=== PATIENT | male | born 1935 | race Caucasian/White ===

== ENCOUNTER 2023-12-02 14:44 | Inpatient (IN) ==
[2023-12-02 16:54] VITALS: BMI 27.3
--- NOTE | 2023-12-02 18:11 | EKG ---
Test Reason : AFIB WITH RVR Blood Pressure : */* mmHG Vent. Rate : 108 BPM Atrial Rate : * BPM P-R Int : * ms QRS Dur : 86 ms QT Int : 348 ms P-R-T Axes : * -68 -11 degrees QTc Int : 466 ms Atrial fibrillation with rapid ventricular response Left axis deviation Septal infarct , age undetermined Abnormal ECG No previous ECGs available Confirmed by Brandon Wright MD ([id number]) on 12/03/2023 7:32:40 AM Referred By: Confirmed By: Brandon Wright MD
[2023-12-02 18:36] LABS: BASOPHILS % (AUTO) 0.5 % (0.2-1.0); EOSINOPHILS % (AUTO) 0.5 % (0.9-2.9); HEMATOCRIT 42.9 % (42.0-54.0); HEMOGLOBIN 14.2 g/dL (13.5-18.0); LYMPHOCYTES # (AUTO) 1.1 X10^3/uL (1.3-2.9); MEAN CORPUSCULAR HGB CONC 33.1 g/dL (33.0-35.0); MEAN CORPUSCULAR VOLUME 90.5 fL (80.0-100.0); MEAN PLATELET VOLUME 8.2 fL (7.4-11.0); MONOCYTES % (AUTO) 11.9 % (0.0-13.0); NEUTROPHILS % (AUTO) 74.1 % (42.0-75.0); PLATELET COUNT 198 X10^3/uL (150.0-450.0); RED BLOOD COUNT 4.74 X10^6/uL (4.7-6.0); WHITE BLOOD COUNT 8.1 X10^3/uL (3.6-10.0)
[2023-12-02 18:48] LABS: ALANINE AMINOTRANSFERASE 36 Units/L (12-78); ALBUMIN 3.4 g/dL (3.4-5.0); ALKALINE PHOSPHATASE 58 Units/L (46-116); ASPARTATE AMINO TRANSFERASE 31 Units/L (15-37); BLOOD UREA NITROGEN 24 mg/dL (7-18); CALCIUM 8.8 mg/dL (8.5-10.1); CARBON DIOXIDE 28.2 mmol/L (21-32); CHLORIDE 94 mmol/L (98-107); COR NA(FOR HYPERGLY) 129 mmol/L (136-145); CREATININE 1.32 mg/dL (0.70-1.30); GLUCOSE 111 mg/dL (65-99); POTASSIUM 4.3 mmol/L (3.5-5.1); SODIUM 129 mmol/L (136-145); TOTAL PROTEIN 6.5 g/dL (6.4-8.2); eGFR NON BLACK RACES 55 (>60)
--- NOTE | 2023-12-02 19:06 | EKG ---
Test Reason : SOB Blood Pressure : */* mmHG Vent. Rate : 114 BPM Atrial Rate : * BPM P-R Int : * ms QRS Dur : 96 ms QT Int : 344 ms P-R-T Axes : * -34 -6 degrees QTc Int : 474 ms Atrial fibrillation with rapid ventricular response with premature ventricular or aberrantly conducte d complexes Left axis deviation Low voltage QRS Cannot rule out Anterior infarct (cited on or before 02-DEC-2023) Abnormal ECG When compared with ECG of 02-DEC-2023 17:50, (Unconfirmed) Questionable change in initial forces of Anterior leads Nonspecific T wave abnormality no longer evident in Anterior leads Confirmed by Brandon Wright MD ([id number]) on 12/03/2023 7:32:32 AM Referred By: Confirmed By: Brandon Wright MD
[2023-12-02] MEDS: ASPIRIN EC 81 MG PO SCH (19:12)
[2023-12-02] MEDS: NS 1,000 ML IV 1,000 ML IV SCH (19:12)
[2023-12-02] MEDS: TOPROL XL PO SCH (19:12)
[2023-12-02] MEDS: PLAVIX PO SCH (19:12)
--- NOTE | 2023-12-02 20:26 | RAD ---
EXAM:CHEST, 1 VIEWHISTORY:AFIB WITH RVR; UnavailableCOMPARISON:None.FINDINGS:The trachea is midline. The cardiac silhouette is enlarged. The lungs demonstrate bilateral effusions [id number]-ryuvnel-[id number]-right with some mild pulmonary vascular congestion which may be due to early changes of CHF. The bony thorax is unremarkable.IMPRESSION:Cardiomegaly with bilateral layering effusions [id number]-right and mild pulmonary vascular congestion suggesting early changes of CHF.THIS IS AN ELECTRONICALLY VERIFIED FINAL REPORT12/02/2023 8:22 PM - Electronically signed by Rigoberto Tyson MD
[2023-12-02 20:30] LABS: APPEARANCE,URINE CLEAR (CLEAR); BILIRUBIN,URINE NEGATIVE (NEGATIVE); BLOOD/HEMOGLOBIN,URINE 1+ (NEGATIVE); COLOR,URINE DARK YELLOW (YELLOW); GLUCOSE, URINE NEGATIVE (NEGATIVE); KETONES,URINE 1+ (NEGATIVE); LEUKOCYTE ESTERASE ,URINE NEGATIVE (NEGATIVE); NITRITES,URINE NEGATIVE (NEGATIVE); PROTEIN,URINE 2+ (NEGATIVE); UROBILINOGEN,URINE NORMAL (NORMAL)
[2023-12-02 20:42] LABS: BACTERIA,URINE TRACE /HPF (NEGATIVE); HYALINE CASTS, URINE FEW /LPF (NEGATIVE); RBC,URINE 0-2 /HPF (0-3); SQUAMOUS EPITHELIAL CELL,UR FEW /HPF (NEGATIVE); YEAST,URINE FEW /HPF (NEGATIVE)
[2023-12-02] MEDS: ZOCOR TAB 20 MG PO SCH (21:15)
--- NOTE | 2023-12-02 22:53 | EKG ---
Test Reason : SOB Blood Pressure : */* mmHG Vent. Rate : 98 BPM Atrial Rate : * BPM P-R Int : * ms QRS Dur : 98 ms QT Int : 382 ms P-R-T Axes : * 1 1 degrees QTc Int : 487 ms Atrial fibrillation Low voltage QRS Cannot rule out Anterior infarct (cited on or before 02-DEC-2023) Abnormal ECG When compared with ECG of 02-DEC-2023 18:49, (Unconfirmed) QRS axis shifted right Confirmed by Brandon Wright MD ([id number]) on 12/03/2023 7:31:34 AM Referred By: Confirmed By: Brandon Wright MD
--- NOTE | 2023-12-03 03:06 | EKG ---
Test Reason : SOB Blood Pressure : */* mmHG Vent. Rate : 109 BPM Atrial Rate : * BPM P-R Int : * ms QRS Dur : 94 ms QT Int : 360 ms P-R-T Axes : * 4 -18 degrees QTc Int : 484 ms Atrial fibrillation with rapid ventricular response Low voltage QRS Septal infarct (cited on or before 02-DEC-2023) Abnormal ECG When compared with ECG of 02-DEC-2023 22:38, (Unconfirmed) No significant change was found Confirmed by Brandon Wright MD ([id number]) on 12/03/2023 7:31:23 AM Referred By: Confirmed By: Brandon Wright MD
[2023-12-03 03:20] LABS: BASOPHILS % (AUTO) 0.4 % (0.2-1.0); EOSINOPHILS # (AUTO) 0.1 x10^3/uL (0.0-0.2); HEMATOCRIT 40.6 % (42.0-54.0); HEMOGLOBIN 13.4 g/dL (13.5-18.0); LYMPHOCYTES # (AUTO) 0.9 X10^3/uL (1.3-2.9); LYMPHOCYTES % (AUTO) 12.1 % (21.0-51.0); MEAN CORPUSCULAR HEMOGLOBIN 29.8 pg (27.0-34.0); MEAN CORPUSCULAR HGB CONC 33.2 g/dL (33.0-35.0); MEAN CORPUSCULAR VOLUME 89.7 fL (80.0-100.0); MEAN PLATELET VOLUME 8.1 fL (7.4-11.0); MONOCYTES % (AUTO) 13.7 % (0.0-13.0); NEUTROPHILS # (AUTO) 5.4 x10^3/uL (2.2-4.8); NEUTROPHILS % (AUTO) 72.8 % (42.0-75.0); PLATELET COUNT 190 X10^3/uL (150.0-450.0); RED BLOOD COUNT 4.52 X10^6/uL (4.7-6.0); RED CELL DISTRIBUTION WIDTH 13.9 % (11.6-16.5); WHITE BLOOD COUNT 7.4 X10^3/uL (3.6-10.0)
[2023-12-03 03:34] LABS: ALANINE AMINOTRANSFERASE 31 Units/L (12-78); ALKALINE PHOSPHATASE 50 Units/L (46-116); ASPARTATE AMINO TRANSFERASE 27 Units/L (15-37); BLOOD UREA NITROGEN 23 mg/dL (7-18); CALCIUM 8.3 mg/dL (8.5-10.1); CARBON DIOXIDE 25.4 mmol/L (21-32); CHLORIDE 95 mmol/L (98-107); COR CA(FOR HYPOALB) 9.1 mg/dL (8.5-10.1); COR NA(FOR HYPERGLY) 129 mmol/L (136-145); CREATINE KINASE 67 Units/L (39-308); CREATININE 1.22 mg/dL (0.70-1.30); GLUCOSE 114 mg/dL (65-99); SODIUM 129 mmol/L (136-145); TOTAL PROTEIN 5.7 g/dL (6.4-8.2); eGFR NON BLACK RACES 60 (>60)
[2023-12-03] MEDS: LOVENOX INJ 40 MG SYR SC SCH (08:28)
--- NOTE | 2023-12-03 10:27 | DR.UPDATE ---
H&P Update Prescription drug monitoring program results: PDMP reviewed and no concerns identified H&P Reviewed: Yes Any changes to H&P?: Yes Changes noted:: WAS A DIRECT ADMISSION TO THE HOSPITAL FOR EVALUATION AND TREATMENT OF NEW ONSET ATRIAL FIBRILLATION. HIS SYMPTOMS OF SHORTNESS OF BREATH AND ELEVATED HEART RATE STARTED ABOUT A MONTH AGO AND HAVE PROGRESSIVELY GOTTEN WORSE. HIS MEDICAL HX INCLUDES HYPERLIPIDEMIA, HTN, CAD, PROSTATE CANCER. HE IS CURRENTLY RECEIVING TREATMENT BY . IN THE OFFICE, EKG REVEALED ATRIAL FIBRILLATION WITH RVR. ON ARRIVAL TO THE HOSPITAL, HIS VITALS WERE: 97.8-128-49-94%-144/102. LABS WERE OBTAINED. WBC 8.1, RBC 4.74, HGB 14.2, HCT 42.9, PLT COUNT 198, SODIUM 129, POTASSIUM 4.3, CHLORIDE 94, CARBON DIOXIDE 28.2, BUN 24, CREATININE 1.32, GLUCOSE 111, CALCIUM 8.8, MAGNESIUM 2.1, TOTAL BILI 1.00, AST 31, ALT 36, ALK PHOS 58, CREATINE KINASE 117, TROPONIN 21.0, BNP 682, TOTAL PROTEIN 6.5, ALBUMIN 3.4. A URINALSYIS WAS OBTAINED AND WAS UNREMARKABLE. A CHEST XRAY WAS OBTAINED AND REVEALED: CARDIOMEGALY WITH BI LATERAL LAYERING EFFUSIONS [id number] AND MILD PULMONARY VASCULAR CONGESTION SUGGESTING EARLY CHANGES OF CHF. EKG WAS OBTAINED AND REVEALED ATRIAL FIBRILLATION WITH RAPID VENTRICULAR RESPONSE. HR 108 BPM. ON ADMISSION, HE WAS STARTED ON NORMAL SALINE AT 50 ML/HR, ECOTRIN 81MG DAILY, PLAVIX 75MG DAILY, LOVENOX 40MG SC DAILY, METOPROLOL SUCCINATE 100MG DAILY, ELIQUIS 2.5MG BID, ALBUMIN 25% IV DAILY, AND ZOCOR 20MG HS. WE WILL ADMINISTER LASIX 20MG IV X 1 DOSE. WE WILL OBTAIN AN ECHOCARDIOGRAM. OTHERWISE, WE WILL FOLLOW-UP WITH AM LABS AND CHEST XRAY AND CONTINUE TO MONITOR. TIME SPENT ON CLINICAL ASSESSMENT, REVIEWING LABS AND IMAGING, DECISION MAKING, AND DOCUMENTATION GREATER THAN 75 MINUTES. REPEAT SERIAL CARDIAC ENZYMES WERE WITHIN NORMAL LIMITS AND EKGS CONTINUED TO SHOW ATRIAL FIBRILLATION WITH RVR. Patient was examined?: Yes Vital Signs: Temp Pulse Resp BP Pulse Ox O2 Del Method 12/03/23 09:17 Room Air 12/03/23 09:00 147/72 12/03/23 09:00 106 H 32 H 97 12/03/23 08:45 103 H 36 H 98 12/03/23 08:30 99 H 28 H 97 12/03/23 08:15 107 H 36 H 96 12/03/23 08:13 140/88 12/03/23 08:13 109 H 43 H 96 12/03/23 08:43 Room Air 12/03/23 08:00 167/125 12/03/23 08:00 97.8 F 114 H 39 H 93 L 12/03/23 07:45 112 H 34 H 96 12/03/23 07:30 105 H 31 H 98 12/03/23 07:15 106 H 46 H 97 12/03/23 07:01 118 H 48 H 96 12/03/23 07:01 162/89 12/03/23 07:00 133 H 38 H 95 12/03/23 06:45 97 H 11 L 97 12/03/23 06:30 99 H 30 H 97 12/03/23 06:15 100 H 36 H 98 12/03/23 06:00 147/80 12/03/23 06:00 101 H 38 H 97 12/03/23 05:45 110 H 38 H 96 12/03/23 05:30 134 H 62 H 95 12/03/23 05:15 117 H 34 H 96 12/03/23 05:00 127/78 12/03/23 05:00 101 H 18 96 12/03/23 04:45 98 H 16 96 12/03/23 04:30 108 H 21 95 12/03/23 04:15 108 H 33 H 96 12/03/23 04:01 146/80 12/03/23 04:01 103 H 19 97 12/03/23 04:00 102 H 20 97 12/03/23 03:45 94 H 15 98 12/03/23 03:30 96 H 13 97 12/03/23 03:15 96 H 25 H 97 12/03/23 03:00 99 H 27 H 97 12/03/23 03:00 126/83 12/03/23 02:45 98 H 22 97 12/03/23 02:30 102 H 22 97 12/03/23 02:15 104 H 16 96 12/03/23 02:01 156/93 12/03/23 02:01 107 H 22 95 12/03/23 02:00 101 H 20 96 12/03/23 01:45 88 11 L 96 12/03/23 01:30 88 10 L 95 12/03/23 01:15 89 11 L 96 12/03/23 01:00 122/72 12/03/23 01:00 93 H 11 L 97 12/03/23 00:45 90 11 L 98 12/03/23 00:30 96 H 13 97 12/03/23 00:15 94 H 12 98 12/03/23 00:00 124/74 12/03/23 00:00 98 H 21 96 12/02/23 23:45 98 H 20 97 12/02/23 23:30 101 H 15 97 12/02/23 23:15 95 H 20 97 12/02/23 23:00 105 H 31 H 97 12/02/23 23:00 133/81 12/02/23 22:45 101 H 19 97 12/02/23 22:30 104 H 28 H 96 12/02/23 22:15 102 H 22 97 12/02/23 22:00 96 H 12 98 12/02/23 22:00 120/86 12/03/23 06:00 99 H 26 H 147/80 96 Room Air 12/03/23 05:00 98 H 18 127/78 96 Room Air 12/03/23 04:00 97.9 F 97 H 26 H 141/80 96 Room Air 12/03/23 03:00 97 H 31 H 126/83 98 Room Air 12/03/23 02:00 101 H 27 H 153/91 96 Room Air 12/03/23 01:00 86 16 122/72 97 Room Air 12/03/23 00:00 97.9 F 97 H 20 124/74 96 Room Air 12/02/23 23:00 97 H 19 133/81 98 Room Air 12/02/23 19:00 Room Air 12/02/23 22:00 93 H 16 120/86 97 Room Air 12/02/23 21:00 105 H 29 H 132/71 97 Room Air 12/02/23 20:00 97.9 F 120 H 28 H 164/72 97 Room Air 12/02/23 19:00 126 H 33 H 159/87 97 Room Air 12/02/23 16:00 Room Air 12/02/23 18:07 108 H 49 H 94 L 12/02/23 18:07 123/91 12/02/23 18:00 110 H 42 H 98 12/02/23 17:45 111 H 44 H 96 12/02/23 17:35 97.7 F 76 21 143/59 100 12/02/23 17:30 116 H 37 H 90 L 12/02/23 17:15 111 H 53 H 97 12/02/23 17:02 148/93 12/02/23 17:02 105 H 65 H 97 12/02/23 17:00 111 H 54 H 98 12/02/23 17:00 148/102 12/02/23 16:45 115 H 41 H 98 12/02/23 16:30 110 H 48 H 99 12/02/23 16:15 116 H 53 H 99 12/02/23 16:15 161/81 12/02/23 16:13 118 H 60 H 94 L 12/02/23 16:13 144/102 12/02/23 16:10 97.8 F 128 H 49 H
[2023-12-03] MEDS: TOPROL XL PO ONE (10:28)
[2023-12-03] MEDS: LASIX IVP ONE (10:42)
[2023-12-03] MEDS: ALBUMIN HUMAN 25%- 100 ML 100 ML IV SCH (10:42)
--- NOTE | 2023-12-03 11:04 | RAD ---
EXAM: CHEST, 1 VIEW HISTORY: SOB; COMPARISON: Prior study or studies were utilized for comparison during interpretation with the most relevant vandana ed 12/02/2023 TECHNIQUE: CHEST, 1 VIEW FINDINGS: Chest: Lines and tubes: Cardiac leads overlie the chest. Mediastinum: Cardiomegaly. Pulmonary vessels: No pulmonary vascular congestion. Lung francis: No suspicious airspace opacity. Pleura: Bilateral pleural effusions, with interval reduction of the right Bones and soft tissues: No acute osseous or soft tissue abnormality. IMPRESSION: 1. Bilateral pleural effusions THIS IS AN ELECTRONICALLY VERIFIED FINAL REPORT 12/03/2023 11:01 AM - Electronically signed by Ziyad Figueroa MD
--- NOTE | 2023-12-03 14:09 | DR.CONSULT ---
CONSULT Consultation for Day of: Date: 12/03/23 Chief Complaint Chief Complaint: sob/edema/new AF Allergies Allergies Allergy/AdvReac Type Severity Reaction Status Date / Time No Known Allergies Allergy Verified 12/02/23 18:03 History of Present Illness History of Present Illness: stent 10 years ago- last stress 5 years ago- c/o hennessy/edema last month- found to be in rafib Past Surgical History Surgical History: Angioplasty/Stents Family History Family Medical History: Cancer Social History Does patient currently use any type of tobacco product: No Have you used tobacco products in the last 12 months: No Type of Tobacco Use: None Alcohol Use: Occasionally Drug Use: None Medications Home Medications: No Known Allergies Allergy (Verified 12/02/23 18:03) CONTINUE taking the following medications aspirin 81 mg tablet,delayed release 81 mg PO DAILY 12/02/23 [History] clopidogrel 75 mg tablet 75 mg PO QDAY 12/02/23 [History] metoprolol succinate 50 mg tablet,extended release 24 hr 50 mg PO QDAY 12/02/23 [History] nitrofurantoin monohydrate/macrocrystals 100 mg capsule 1 cap PO BID 12/02/23 [History] simvastatin 20 mg tablet 20 mg PO QPM 12/02/23 [History] Physical Exam Vital Signs: Vital Signs Temperature 97.8 F Temperature 97.8 F Pulse Rate 146 Pulse Rate 129 Pulse Rate 128 Pulse Rate 123 Pulse Rate 131 Pulse Rate 130 Pulse Rate 126 Pulse Rate 124 Pulse Rate 133 Pulse Rate 132 Pulse Rate 122 Pulse Rate 134 Pulse Rate 139 Pulse Rate 131 Pulse Rate 123 Pulse Rate 115 Pulse Rate 103 Pulse Rate 104 Pulse Rate 111 Pulse Rate 126 Pulse Rate 106 Pulse Rate 101 Pulse Rate 106 Pulse Rate 103 Pulse Rate 99 Pulse Rate 107 Pulse Rate 109 Pulse Rate 114 Pulse Rate 112 Pulse Rate 105 Pulse Rate 106 Pulse Rate 118 Pulse Rate 133 Pulse Rate 97 Pulse Rate 99 Pulse Rate 100 Respiratory Rate 49 Respiratory Rate 89 Respiratory Rate 72 Respiratory Rate 47 Respiratory Rate 54 Respiratory Rate 50 Respiratory Rate 85 Respiratory Rate 43 Respiratory Rate 41 Respiratory Rate 48 Respiratory Rate 39 Respiratory Rate 65 Respiratory Rate 41 Respiratory Rate 52 Respiratory Rate 45 Respiratory Rate 35 Respiratory Rate 26 Respiratory Rate 21 Respiratory Rate 29 Respiratory Rate 54 Respiratory Rate 43 Respiratory Rate 29 Respiratory Rate 32 Respiratory Rate 36 Respiratory Rate 28 Respiratory Rate 36 Respiratory Rate 43 Respiratory Rate 39 Respiratory Rate 34 Respiratory Rate 31 Respiratory Rate 46 Respiratory Rate 48 Respiratory Rate 38 Respiratory Rate 11 Respiratory Rate 30 Respiratory Rate 36 Blood Pressure 144/88 Blood Pressure 144/78 Blood Pressure 170/96 Blood Pressure 171/100 Blood Pressure 156/98 Blood Pressure 158/101 Blood Pressure 165/101 Blood Pressure 159/107 Blood Pressure 175/111 Blood Pressure 139/76 Blood Pressure 147/72 Blood Pressure 140/88 Blood Pressure 167/125 Blood Pressure 162/89 O2 Sat by Pulse Oximetry 92 O2 Sat by Pulse Oximetry 95 O2 Sat by Pulse Oximetry 93 O2 Sat by Pulse Oximetry 93 O2 Sat by Pulse Oximetry 94 O2 Sat by Pulse Oximetry 74 O2 Sat by Pulse Oximetry 93 O2 Sat by Pulse Oximetry 95 O2 Sat by Pulse Oximetry 95 O2 Sat by Pulse Oximetry 95 O2 Sat by Pulse Oximetry 94 O2 Sat by Pulse Oximetry 93 O2 Sat by Pulse Oximetry 94 O2 Sat by Pulse Oximetry 95 O2 Sat by Pulse Oximetry 95 O2 Sat by Pulse Oximetry 96 O2 Sat by Pulse Oximetry 96 O2 Sat by Pulse Oximetry 97 O2 Sat by Pulse Oximetry 97 O2 Sat by Pulse Oximetry 95 O2 Sat by Pulse Oximetry 98 O2 Sat by Pulse Oximetry 98 O2 Sat by Pulse Oximetry 97 O2 Sat by Pulse Oximetry 98 O2 Sat by Pulse Oximetry 97 O2 Sat by Pulse Oximetry 96 O2 Sat by Pulse Oximetry 96 O2 Sat by Pulse Oximetry 93 O2 Sat by Pulse Oximetry 96 O2 Sat by Pulse Oximetry 98 O2 Sat by Pulse Oximetry 97 O2 Sat by Pulse Oximetry 96 O2 Sat by Pulse Oximetry 95 O2 Sat by Pulse Oximetry 97 trop negative x 2O2 Sat by Pulse Oximetry 97 O2 Sat by Pulse Oximetry 98 alert ox3 diallo irreg irreg anastasiia 2 plus B edema- lungs minimal fluid labs" hct 40- k4.0 na 129 bun/cr 23/1.2 alb 3.0 trop negative x 2 bnp 715 Plan (1) CAD (coronary artery disease): Status: Acute Narrative Support Text: cont plavix/bb/statin- no asa since adding doac (2) Atrial fibrillation: Status: Acute Narrative Support Text: start doac- increase bb for better rate control- also add CCB drip- will consider carrington/cv friday if no convert- check echo (3) Edema: Status: Acute Narrative Support Text: albumin/lasix- rate control
[2023-12-03] MEDS: ELIQUIS PO SCH (14:32)
[2023-12-03] MEDS: CARDIZEM INJ 125 MG VIAL 125 MG in NS 100 ML IV 100 ML IV PRN (14:46)
[2023-12-03] MEDS: CONSULT PHARMACY - POTASSIUM & MAGNESIUM XX SCH (19:04)
[2023-12-03] MEDS: CRESTOR TAB 10 MG PO SCH (21:24)
[2023-12-04 05:24] LABS: BASOPHILS % (AUTO) 0.5 % (0.2-1.0); EOSINOPHILS # (AUTO) 0.1 x10^3/uL (0.0-0.2); EOSINOPHILS % (AUTO) 1.2 % (0.9-2.9); HEMOGLOBIN 12.7 g/dL (13.5-18.0); LYMPHOCYTES # (AUTO) 0.8 X10^3/uL (1.3-2.9); LYMPHOCYTES % (AUTO) 11.7 % (21.0-51.0); MEAN CORPUSCULAR HGB CONC 33.3 g/dL (33.0-35.0); MEAN CORPUSCULAR VOLUME 90.2 fL (80.0-100.0); MONOCYTES % (AUTO) 15.5 % (0.0-13.0); NEUTROPHILS # (AUTO) 4.6 x10^3/uL (2.2-4.8); NEUTROPHILS % (AUTO) 71.1 % (42.0-75.0); PLATELET COUNT 188 X10^3/uL (150.0-450.0); RED BLOOD COUNT 4.22 X10^6/uL (4.7-6.0); RED CELL DISTRIBUTION WIDTH 13.8 % (11.6-16.5); WHITE BLOOD COUNT 6.4 X10^3/uL (3.6-10.0)
[2023-12-04 05:38] LABS: ALANINE AMINOTRANSFERASE 80 Units/L (12-78); ALBUMIN 3.3 g/dL (3.4-5.0); ALKALINE PHOSPHATASE 51 Units/L (46-116); ASPARTATE AMINO TRANSFERASE 84 Units/L (15-37); BLOOD UREA NITROGEN 22 mg/dL (7-18); CALCIUM 8.3 mg/dL (8.5-10.1); CARBON DIOXIDE 23.9 mmol/L (21-32); CHLORIDE 97 mmol/L (98-107); COR CA(FOR HYPOALB) 8.9 mg/dL (8.5-10.1); CREATININE 1.23 mg/dL (0.70-1.30); GLUCOSE 102 mg/dL (65-99); POTASSIUM 3.9 mmol/L (3.5-5.1); SODIUM 133 mmol/L (136-145); TOTAL PROTEIN 5.8 g/dL (6.4-8.2); eGFR NON BLACK RACES 59 (>60)
[2023-12-04] MEDS: TOPROL XL PO SCH (08:54)
[2023-12-04] MEDS: CARDIZEM TAB 30 MG PLAIN PO SCH (13:54)
--- NOTE | 2023-12-04 14:23 | NOTE.SOAP ---
Soap Note Note for Day of Date of Exam: 12/04/23 Subjective Data Subjective Data: still in afib- feels better w rate control, edema down Objective Data Objective Data: bp 140/70 p79 lungs clear edema down irreg irreg echo: ef 45% big [place] labs: hct 38, na 133, k 3.9 cr 1.23 Assessment Assessment: cad/af/htn Plan Plan: change to po cardizem- iv amio load ( big [place]!- give best shot to maintain nsr- carrington/cv in am
[2023-12-04] MEDS: NEXTERONE IV 150 MG PREMIX* 150 MG/100 ML BAG IV ONE (16:00)
[2023-12-04] MEDS: NEXTERONE IV 360 MG PREMIX* 360 MG/200 ML BAG IV PRN ×2 (16:20→22:50)
[2023-12-04] MEDS: ELIQUIS PO SCH (17:25)
[2023-12-04] MEDS: COLACE CAP 100 MG PO PRN (21:03)
[2023-12-04] MEDS: VALIUM PO PRN (21:56)
[2023-12-05 05:41] LABS: BASOPHILS % (AUTO) 0.4 % (0.2-1.0); EOSINOPHILS % (AUTO) 0.5 % (0.9-2.9); HEMATOCRIT 39.4 % (42.0-54.0); HEMOGLOBIN 12.9 g/dL (13.5-18.0); LYMPHOCYTES # (AUTO) 1.3 X10^3/uL (1.3-2.9); LYMPHOCYTES % (AUTO) 16.8 % (21.0-51.0); MEAN CORPUSCULAR HEMOGLOBIN 29.6 pg (27.0-34.0); MEAN CORPUSCULAR HGB CONC 32.7 g/dL (33.0-35.0); MEAN CORPUSCULAR VOLUME 90.8 fL (80.0-100.0); MONOCYTES # (AUTO) 1.2 x10^3/uL (0.3-0.8); MONOCYTES % (AUTO) 15.3 % (0.0-13.0); NEUTROPHILS # (AUTO) 5.1 x10^3/uL (2.2-4.8); PLATELET COUNT 191 X10^3/uL (150.0-450.0); RED BLOOD COUNT 4.34 X10^6/uL (4.7-6.0); RED CELL DISTRIBUTION WIDTH 14.3 % (11.6-16.5); WHITE BLOOD COUNT 7.6 X10^3/uL (3.6-10.0)
[2023-12-05 05:51] LABS: ALANINE AMINOTRANSFERASE 133 Units/L (12-78); ALBUMIN 3.5 g/dL (3.4-5.0); ALKALINE PHOSPHATASE 48 Units/L (46-116); ASPARTATE AMINO TRANSFERASE 156 Units/L (15-37); BLOOD UREA NITROGEN 29 mg/dL (7-18); CALCIUM 8.2 mg/dL (8.5-10.1); CARBON DIOXIDE 23.5 mmol/L (21-32); CHLORIDE 98 mmol/L (98-107); COR NA(FOR HYPERGLY) 134 mmol/L (136-145); CREATININE 1.51 mg/dL (0.70-1.30); GLUCOSE 136 mg/dL (65-99); POTASSIUM 4.3 mmol/L (3.5-5.1); SODIUM 133 mmol/L (136-145); eGFR NON BLACK RACES 47 (>60)
[2023-12-05] MEDS: NS 1,000 ML IV 1,000 ML ONE (08:07)
[2023-12-05] MEDS: DIPRIVAN VIAL 20 ML ONE (08:14)
--- NOTE | 2023-12-05 09:21 | CARDIOVERT ---
Cardioversion Note Date of Procedure: Date: 12/05/23 Note Cardioversion note: precardioversion dx: afib post cardioversion dx: NSR anesethesia: per anesthesia procedure: consent obtained from - pt sedated but did respond to questions before procedure. Standard SIRISHA was preformed w/o difficulty revealing no contraindication to CV thus 300J of synchronous electricity was applied converting to NSR- pt was still sedated post procedure but going back to ICU and will keep a close eye on him- no obvious complications final impression: successful CV to nsr plan: cont doac. amio 200 bid for month then 200 qd.
--- NOTE | 2023-12-05 12:09 | PCM.PROG ---
Progress Note - Progress Note for Day of Date of Exam: 12/04/23 - Subjective Subjective: IS CURRENTLY INPATIENT STATUS FOR TREATMENT OF ATRIAL FIBRILLATION WITH RVR AND CHF. HIS MEDICAL HX INCLUDES HYPERLIPIDEMIA, HTN, CAD, PROSTATE CANCER. HE ALSO REPORTS HAVING A CARDIAC STENT ABOUT 10 YEARS AGO. HE REPORTS THAT HIS LAST STRESS TEST WAS ABOUT 5 YEARS AGO. TODAY, HE IS ALERT AND ORIENTED, SITTING UP IN BED ON MORNING ROUNDS. HE CONTINUES TO REPORT SHORTNESS OF BREATH AND SOME LOWER EXTREMITY SWELLING, BUT DOES ADMIT TO SOME IMPROVEMENT IN SYMPTOMS SINCE ADMISSION. ON EXAMINATION, HEART RATE IS IN THE 70s-80s, BUT HE CONTINUES TO BE IN ATRIAL FIBRILLATION. BILATERAL LUNGS ARE NOTED WITH DIMINISHED LUNG SOUNDS THROUGHOUT. ABDOMEN IS ROUND, SOFT, AND NON-TENDER WITH NORMAL BOWEL SOUNDS NOTED IN ALL QUADRANTS. GOOD RANGE OF MOTION NOTED TO UPPER AND LOWER EXTREMITIES. 1+ EDEMA NOTED TO BLE. HIS VITALS THIS MORNING ARE: 98.0-83-24-94%-132/66. LABS WERE OBTAINED. WBC 6.4, RBC 4.22, HGB 12.7, HCT 38.0, PLT COUNT 188, SODIUM 133, POTASSIUM CHLORIDE 3.9, CHLORIDE 97, BUN 22, CREATININE 1.23, GLUCOSE 102, CALCIUM 8.3, TOTAL BILI 1.20, AST 84, ALT 80, TOTAL PROTEIN 5.8, ALBUMIN 3.3. HE IS CURRENTLY RECEIVING NORMAL SALINE AT 50 ML/HR, ECOTRIN 81MG DAILY, PLAVIX 75MG DAILY, LOVENOX 40MG SC DAILY, METOPROLOL SUCCINATE 100MG DAILY, AMIODARONE 200MG BID, ELIQUIS 2.5MG BID, ALBUMIN 25% IV DAILY, AND ZOCOR 20MG HS. HE IS ALSO ON A CARDIZEM DRIP, WHICH WAS STARTED BY . PLANS FOR A SIRISHA AND POSSIBLE CARDIOVERSION IN THE MORNING IF HE HAS NOT COVERTED TO NSR. WE WILL CONTINUE WITH CURRENT PLAN OF CARE TODAY. OTHERWISE, WE WILL FOLLOW-UP WITH AM LABS AND CONTINUE TO MONITOR. TIME SPENT ON CLINICAL ASSESSMENT, REVIEWING LABS AND IMAGING, DECISION MAKING, AND DOCUMENTATION GREATER THAN 45 MINUTES. - Past Medical Family Social History Past Med/Fam/Surg Hx: No changes since H&P Allergies: Allergies No Known Allergies Allergy (Verified 12/02/23 18:03) - Review of Systems ROS: No change since H&P - Vital Signs and I&O's Vital Signs: Vital Signs Pulse Rate 69 Pulse Rate 71 Pulse Rate 75 Pulse Rate 74 Pulse Rate 73 Pulse Rate 74 Respiratory Rate 9 Respiratory Rate 10 Respiratory Rate 21 Respiratory Rate 10 Respiratory Rate 14 Respiratory Rate 12 Blood Pressure 127/73 Blood Pressure 136/83 Blood Pressure 135/83 Blood Pressure 141/84 Blood Pressure 130/78 Blood Pressure 131/92 O2 Sat by Pulse Oximetry 95 O2 Sat by Pulse Oximetry 95 O2 Sat by Pulse Oximetry 97 O2 Sat by Pulse Oximetry 95 O2 Sat by Pulse Oximetry 95 O2 Sat by Pulse Oximetry 96 Intake and Output: Intake & Output 12/03/23 12/04/23 12/05/23 12/06/23 11:59 11:59 11:59 11:59 Intake Total 895 / 895 2557 / 2557 3070 / 3070 Output Total 325 / 325 200 / 200 Balance 570 / 570 2357 / 2357 3070 / 3070 - Physical Exam Oriented: Normal Eyes: Normal Ear: Normal Nose: Normal Respiratory: Normal Cardiovascular: Irregular, Edema (BLE 1+ PITTING EDEMA ) : Normal Auscultation: Bowel Sounds: Normal Palpation: Normal Tenderness: Normal Skin: Normal Musculoskeletal: Normal Psychiatric: Normal Mood Description: Calm Affect: Normal Speech Pattern: Appropriate - Laboratory and Diagnostics Result Diagrams: 12/05/23 04:51 12/05/23 04:51 Labs: Laboratory WBC 7.6 X10^3/uL (3.6-10.0) 12/05/23 04:51 RBC 4.34 X10^6/uL (4.7-6.0) L 12/05/23 04:51 Hgb 12.9 g/dL (13.5-18.0) L 12/05/23 04:51 Hct 39.4 % (42.0-54.0) L 12/05/23 04:51 MCV 90.8 fL (80.0-100.0) 12/05/23 04:51 MCH 29.6 pg (27.0-34.0) 12/05/23 04:51 MCHC 32.7 g/dL (33.0-35.0) L 12/05/23 04:51 RDW 14.3 % (11.6-16.5) 12/05/23 04:51 Plt Count 191 X10^3/uL (150.0-450.0) 12/05/23 04:51 MPV 8.0 fL (7.4-11.0) 12/05/23 04:51 Neut % (Auto) 67.0 % (42.0-75.0) 12/05/23 04:51 Lymph % (Auto) 16.8 % (21.0-51.0) L 12/05/23 04:51 [place] % (Auto) 15.3 % (0.0-13.0) H 12/05/23 04:51 Eos % (Auto) 0.5 % (0.9-2.9) L 12/05/23 04:51 Baso % (Auto) 0.4 % (0.2-1.0) 12/05/23 04:51 Neut # (Auto) 5.1 x10^3/uL (2.2-4.8) H 12/05/23 04:51 Lymph # (Auto) 1.3 X10^3/uL (1.3-2.9) 12/05/23 04:51 [place]ran # (Auto) 1.2 x10^3/uL (0.3-0.8) H 12/05/23 04:51 Eos # (Auto) 0.0 x10^3/uL (0.0-0.2) 12/05/23 04:51 Baso # (Auto) 0.0 X10^3/uL (0.0-0.1) 12/05/23 04:51 Absolute Nucleated RBC 0.3 /100WBC 12/05/23 04:51 Sodium 133 mmol/L (136-145) L 12/05/23 04:51 Corrected Sodium 134 mmol/L (136-145) L 12/05/23 04:51 Potassium 4.3 mmol/L (3.5-5.1) 12/05/23 04:51 Chloride 98 mmol/L (98-107) 12/05/23 04:51 Carbon Dioxide 23.5 mmol/L (21-32) 12/05/23 04:51 BUN 29 mg/dL (7-18) H 12/05/23 04:51 Creatinine 1.51 mg/dL (0.70-1.30) H 12/05/23 04:51 Est GFR (MDRD) Af Amer 56 (>60) L 12/05/23 04:51 Est GFR (MDRD) Non-Af 47 (>60) L 12/05/23 04:51 Glucose 136 mg/dL (65-99) H 12/05/23 04:51 POC Glucose (mg/dL) 122 mg/dL (65-99) H 12/05/23 11:24 Calcium 8.2 mg/dL (8.5-10.1) L 12/05/23 04:51 Corrected Calcium TNP 12/05/23 04:51 Magnesium 2.1 mg/dL (2.0-2.9) 12/02/23 18:18 Total Bilirubin 0.90 mg/dL (0.2-1.0) 12/05/23 04:51 AST 156 Units/L (15-37) H 12/05/23 04:51 ALT 133 Units/L (12-78) H 12/05/23 04:51 Alkaline Phosphatase 48 Units/L (46-116) 12/05/23 04:51 Creatine Kinase 67 Units/L (39-308) 12/03/23 03:11 Troponin I High Sens 22.3 ng/L (4.0-60.0) 12/03/23 03:11 B-Natriuretic Peptide 715 pg/mL (0-79) H 12/03/23 03:11 Total Protein 6.0 g/dL (6.4-8.2) L 12/05/23 04:51 Albumin 3.5 g/dL (3.4-5.0) 12/05/23 04:51 Globulin 2.5 g/dL (2.5-4.5) 12/05/23 04:51 Albumin/Globulin Ratio 1.4 Ratio (1.1-2.1) 12/05/23 04:51 TSH 3rd Generation 2.849 uIU/mL (0.358-3.74) 12/03/23 03:11 Specimen Type Random urine 12/02/23 20:00 Urine Color Dark yellow (YELLOW) 12/02/23 20:00 Urine Appearance Clear (CLEAR) 12/02/23 20:00 Urine pH 6.0 (5.0 - 8.0) 12/02/23 20:00 Ur Specific [place] 1.025 (1.000-1.030) 12/02/23 20:00 Urine Protein 2+ (NEGATIVE) 12/02/23 20:00 Urine Glucose (UA) Negative (NEGATIVE) 12/02/23 20:00 Urine Ketones 1+ (NEGATIVE) 12/02/23 20:00 Urine Blood 1+ (NEGATIVE) 12/02/23 20:00 Urine Nitrite Negative (NEGATIVE) 12/02/23 20:00 Urine Bilirubin Negative (NEGATIVE) 12/02/23 20:00 Urine Urobilinogen Normal (NORMAL) 12/02/23 20:00 Ur Leukocyte Esterase Negative (NEGATIVE) 12/02/23 20:00 Urine RBC 0-2 /HPF (0-3) 12/02/23 20:00 Urine WBC 0-2 /HPF (0-5) 12/02/23 20:00 Ur Squamous Epith Cells Few /HPF (NEGATIVE) 12/02/23 20:00 Urine Bacteria Trace /HPF (NEGATIVE) 12/02/23 20:00 Hyaline Casts Few /LPF (NEGATIVE) 12/02/23 20:00 Urine Mucus Few /HPF (NEGATIVE) 12/02/23 20:00 Urine Yeast Few /HPF (NEGATIVE) 12/02/23 20:00 Ur Culture Indicated? No/not indicated 12/02/23 20:00 - Plan (1) Atrial fibrillation Status: Acute Qualifiers: Atrial fibrillation type: unspecified Qualified Code(s): I48.91 - Unspecified atrial fibrillation Plan: SIRISHA AND POSSIBLE CARDIOVERSION IN AM. NORMAL SALINE AT 50 ML/HR, CARDIZEM DRIP, ECOTRIN 81MG DAILY, PLAVIX 75MG DAILY, LOVENOX 40MG SC DAILY, METOPROLOL SUCCINATE 100MG DAILY, AMIODARONE 200MG BID, ELIQUIS 2.5MG BID, ALBUMIN 25% IV DAILY, AND ZOCOR 20MG HR (2) CHF (congestive heart failure) Status: Acute Qualifiers: Heart failure type: unspecified Heart failure chronicity: acute Qualified Code(s): I50.9 - Heart failure, unspecified (3) Hyperlipidemia Status: Chronic Qualifiers: Hyperlipidemia type: mixed hyperlipidemia Qualified Code(s): E78.2 - Mixed hyperlipidemia (4) Hypertension Status: Chronic Qualifiers: Hypertension type: primary hypertension Qualified Code(s): I10 - Essential (primary) hypertension (5) CAD (coronary artery disease) Status: Chronic Qualifiers: Coronary Disease-Associated Artery/Lesion type: [place] artery [place] vs. transplanted heart: [place] heart Associated angina: unspecified whether angina present Qualified Code(s): I25.10 - Atherosclerotic heart disease of [place] coronary artery without angina pectoris
[2023-12-05] MEDS: CORDARONE TAB 200 MG PO SCH (13:10)
[2023-12-05] MEDS: TOPROL XL PO SCH (13:10)
--- NOTE | 2023-12-06 00:35 | PCM.PROG ---
Progress Note - Progress Note for Day of Date of Exam: 12/05/23 - Subjective Subjective: IS CURRENTLY INPATIENT STATUS FOR TREATMENT OF ATRIAL FIBRILLATION WITH RVR AND CHF. HIS MEDICAL HX INCLUDES HYPERLIPIDEMIA, HTN, CAD, PROSTATE CANCER. HE ALSO REPORTS HAVING A CARDIAC STENT ABOUT 10 YEARS AGO. HE REPORTS THAT HIS LAST STRESS TEST WAS ABOUT 5 YEARS AGO. HE IS STATUS POST SIRISHA AND CARDIOVERSION THIS MORNING. TODAY, HE IS LYING IN BED WITH EYES CLOSED ON MORNING ROUNDS. HE WAS SEDATED FOR HIS PROCEDURE THIS MORNING AND REMAINS DROWSY AND DIFFICULT TO AROUSE THIS MORNING. ON EXAMINATION, HEART IS REGULAR IN RATE AND RHYTHM. BILATERAL LUNGS ARE NOTED WITH DIMINISHED LUNG SOUNDS THROUGHOUT. ABDOMEN IS ROUND, SOFT, AND NON-TENDER WITH NORMAL BOWEL SOUNDS NOTED IN ALL QUADRANTS. GOOD RANGE OF MOTION NOTED TO UPPER AND LOWER EXTREMITIES. 1+ EDEMA NOTED TO BLE. HIS VITALS THIS MORNING ARE: 98.3-68-16-96%-135/78. LABS WERE OBTAINED. WBC 7.6, RBC 4.34, HGB 12.9, HCT 39.4, PLT COUNT 191, SODIUM 133, POTASSIUM 4.3, CHLORIDE 98, BUN 29, CREATININE 1.51, GLUCOSE 136, AST 156, ALT 133, ALK PHOS 48, TOTAL PROTEIN 6.0, ALBUMIN 3.5. HE IS CURRENTLY RECEIVING NORMAL SALINE AT 50 ML/HR, ECOTRIN 81MG DAILY, PLAVIX 75MG DAILY, LOVENOX 40MG SC DAILY, METOPROLOL SUCCINATE 50MG DAILY, AMIODARONE 200MG BID, ELIQUIS 2.5MG BID, ALBUMIN 25% IV DAILY, AND ZOCOR 20MG HS. WE WILL CONTINUE WITH CURRENT PLAN OF CARE TODAY. WILL CONTINUE TO MONITOR HIM. OTHERWISE, WE WILL FOLLOW-UP WITH AM LABS AND CONTINUE TO MONITOR. TIME SPENT ON CLINICAL ASSESSMENT, REVIEWING LABS AND IMAGING, DECISION MAKING, AND DOCUMENTATION GREATER THAN 45 MINUTES. - Past Medical Family Social History Past Med/Fam/Surg Hx: No changes since H&P Allergies: Allergies No Known Allergies Allergy (Verified 12/02/23 18:03) - Review of Systems ROS: No change since H&P - Vital Signs and I&O's Vital Signs: Vital Signs Temperature 97.9 F Temperature 97.7 F Pulse Rate 65 Pulse Rate 61 Pulse Rate 69 Pulse Rate 84 Pulse Rate 76 Pulse Rate 79 Pulse Rate 75 Pulse Rate 81 Pulse Rate 74 Respiratory Rate 14 Respiratory Rate 20 Respiratory Rate 21 Respiratory Rate 28 Respiratory Rate 24 Respiratory Rate 28 Respiratory Rate 33 Respiratory Rate 13 Blood Pressure 121/66 Blood Pressure 111/58 Blood Pressure 133/72 Blood Pressure 151/98 Blood Pressure 162/91 Blood Pressure 162/94 Blood Pressure 150/103 Blood Pressure 153/85 O2 Sat by Pulse Oximetry 100 O2 Sat by Pulse Oximetry 99 O2 Sat by Pulse Oximetry 98 O2 Sat by Pulse Oximetry 97 O2 Sat by Pulse Oximetry 97 O2 Sat by Pulse Oximetry 98 O2 Sat by Pulse Oximetry 98 O2 Sat by Pulse Oximetry 97 O2 Sat by Pulse Oximetry 99 Intake and Output: Intake & Output 12/03/23 12/04/23 12/05/23 12/06/23 11:59 11:59 11:59 11:59 Intake Total 895 / 895 2557 / 2557 3070 / 3070 932 / 932 Output Total 325 / 325 200 / 200 Balance 570 / 570 2357 / 2357 3070 / 3070 932 / 932 - Physical Exam Oriented: Normal Eyes: Normal Ear: Normal Nose: Normal Respiratory: Normal Cardiovascular: Normal, Edema (BLE 1+ PITTING EDEMA ) : Normal Auscultation: Bowel Sounds: Normal Palpation: Normal Tenderness: Normal Skin: Normal Musculoskeletal: Normal Psychiatric: Normal Mood Description: Calm Affect: Normal Speech Pattern: Appropriate - Laboratory and Diagnostics Result Diagrams: 12/05/23 04:51 12/05/23 04:51 Labs: Laboratory WBC 7.6 X10^3/uL (3.6-10.0) 12/05/23 04:51 RBC 4.34 X10^6/uL (4.7-6.0) L 12/05/23 04:51 Hgb 12.9 g/dL (13.5-18.0) L 12/05/23 04:51 Hct 39.4 % (42.0-54.0) L 12/05/23 04:51 MCV 90.8 fL (80.0-100.0) 12/05/23 04:51 MCH 29.6 pg (27.0-34.0) 12/05/23 04:51 MCHC 32.7 g/dL (33.0-35.0) L 12/05/23 04:51 RDW 14.3 % (11.6-16.5) 12/05/23 04:51 Plt Count 191 X10^3/uL (150.0-450.0) 12/05/23 04:51 MPV 8.0 fL (7.4-11.0) 12/05/23 04:51 Neut % (Auto) 67.0 % (42.0-75.0) 12/05/23 04:51 Lymph % (Auto) 16.8 % (21.0-51.0) L 12/05/23 04:51 [place] % (Auto) 15.3 % (0.0-13.0) H 12/05/23 04:51 Eos % (Auto) 0.5 % (0.9-2.9) L 12/05/23 04:51 Baso % (Auto) 0.4 % (0.2-1.0) 12/05/23 04:51 Neut # (Auto) 5.1 x10^3/uL (2.2-4.8) H 12/05/23 04:51 Lymph # (Auto) 1.3 X10^3/uL (1.3-2.9) 12/05/23 04:51 [place] # (Auto) 1.2 x10^3/uL (0.3-0.8) H 12/05/23 04:51 Eos # (Auto) 0.0 x10^3/uL (0.0-0.2) 12/05/23 04:51 Baso # (Auto) 0.0 X10^3/uL (0.0-0.1) 12/05/23 04:51 Absolute Nucleated RBC 0.3 /100WBC 12/05/23 04:51 Sodium 133 mmol/L (136-145) L 12/05/23 04:51 Corrected Sodium 134 mmol/L (136-145) L 12/05/23 04:51 Potassium 4.3 mmol/L (3.5-5.1) 12/05/23 04:51 Chloride 98 mmol/L (98-107) 12/05/23 04:51 Carbon Dioxide 23.5 mmol/L (21-32) 12/05/23 04:51 BUN 29 mg/dL (7-18) H 12/05/23 04:51 Creatinine 1.51 mg/dL (0.70-1.30) H 12/05/23 04:51 Est GFR (MDRD) Af Amer 56 (>60) L 12/05/23 04:51 Est GFR (MDRD) Non-Af 47 (>60) L 12/05/23 04:51 Glucose 136 mg/dL (65-99) H 12/05/23 04:51 POC Glucose (mg/dL) 122 mg/dL (65-99) H 12/05/23 11:24 Calcium 8.2 mg/dL (8.5-10.1) L 12/05/23 04:51 Corrected Calcium TNP 12/05/23 04:51 Magnesium 2.1 mg/dL (2.0-2.9) 12/02/23 18:18 Total Bilirubin 0.90 mg/dL (0.2-1.0) 12/05/23 04:51 AST 156 Units/L (15-37) H 12/05/23 04:51 ALT 133 Units/L (12-78) H 12/05/23 04:51 Alkaline Phosphatase 48 Units/L (46-116) 12/05/23 04:51 Creatine Kinase 67 Units/L (39-308) 12/03/23 03:11 Troponin I High Sens 22.3 ng/L (4.0-60.0) 12/03/23 03:11 B-Natriuretic Peptide 715 pg/mL (0-79) H 12/03/23 03:11 Total Protein 6.0 g/dL (6.4-8.2) L 12/05/23 04:51 Albumin 3.5 g/dL (3.4-5.0) 12/05/23 04:51 Globulin 2.5 g/dL (2.5-4.5) 12/05/23 04:51 Albumin/Globulin Ratio 1.4 Ratio (1.1-2.1) 12/05/23 04:51 TSH 3rd Generation 2.849 uIU/mL (0.358-3.74) 12/03/23 03:11 Specimen Type Random urine 12/02/23 20:00 Urine Color Dark yellow (YELLOW) 12/02/23 20:00 Urine Appearance Clear (CLEAR) 12/02/23 20:00 Urine pH 6.0 (5.0 - 8.0) 12/02/23 20:00 Ur Specific [place] 1.025 (1.000-1.030) 12/02/23 20:00 Urine Protein 2+ (NEGATIVE) 12/02/23 20:00 Urine Glucose (UA) Negative (NEGATIVE) 12/02/23 20:00 Urine Ketones 1+ (NEGATIVE) 12/02/23 20:00 Urine Blood 1+ (NEGATIVE) 12/02/23 20:00 Urine Nitrite Negative (NEGATIVE) 12/02/23 20:00 Urine Bilirubin Negative (NEGATIVE) 12/02/23 20:00 Urine Urobilinogen Normal (NORMAL) 12/02/23 20:00 Ur Leukocyte Esterase Negative (NEGATIVE) 12/02/23 20:00 Urine RBC 0-2 /HPF (0-3) 12/02/23 20:00 Urine WBC 0-2 /HPF (0-5) 12/02/23 20:00 Ur Squamous Epith Cells Few /HPF (NEGATIVE) 12/02/23 20:00 Urine Bacteria Trace /HPF (NEGATIVE) 12/02/23 20:00 Hyaline Casts Few /LPF (NEGATIVE) 12/02/23 20:00 Urine Mucus Few /HPF (NEGATIVE) 12/02/23 20:00 Urine Yeast Few /HPF (NEGATIVE) 12/02/23 20:00 Ur Culture Indicated? No/not indicated 12/02/23 20:00 - Plan (1) Atrial fibrillation Status: Acute Qualifiers: Atrial fibrillation type: unspecified Qualified Code(s): I48.91 - Unspecified atrial fibrillation Plan: NORMAL SALINE AT 50 ML/HR, CARDIZEM DRIP, ECOTRIN 81MG DAILY, PLAVIX 75MG DAILY, LOVENOX 40MG SC DAILY, METOPROLOL SUCCINATE 50MG DAILY, AMIODARONE 200MG BID, ELIQUIS 2.5MG BID, ALBUMIN 25% IV DAILY, AND ZOCOR 20MG HR (2) CHF (congestive heart failure) Status: Acute Qualifiers: Heart failure type: unspecified Heart failure chronicity: acute Qualified Code(s): I50.9 - Heart failure, unspecified (3) Hyperlipidemia Status: Chronic Qualifiers: Hyperlipidemia type: mixed hyperlipidemia Qualified Code(s): E78.2 - Mixed hyperlipidemia (4) Hypertension Status: Chronic Qualifiers: Hypertension type: primary hypertension Qualified Code(s): I10 - Essential (primary) hypertension (5) CAD (coronary artery disease) Status: Chronic Qualifiers: Coronary Disease-Associated Artery/Lesion type: [place] artery [place] vs. transplanted heart: [place] heart Associated angina: unspecified whether angina present Qualified Code(s): I25.10 - Atherosclerotic heart disease of [place] coronary artery without angina pectoris
[2023-12-06 05:28] VITALS: TEMP 98
[2023-12-06 05:46] LABS: BASOPHILS % (AUTO) 0.5 % (0.2-1.0); EOSINOPHILS # (AUTO) 0.1 x10^3/uL (0.0-0.2); EOSINOPHILS % (AUTO) 1.4 % (0.9-2.9); HEMATOCRIT 37.3 % (42.0-54.0); HEMOGLOBIN 12.2 g/dL (13.5-18.0); LYMPHOCYTES # (AUTO) 0.6 X10^3/uL (1.3-2.9); LYMPHOCYTES % (AUTO) 10.5 % (21.0-51.0); MEAN CORPUSCULAR HEMOGLOBIN 29.6 pg (27.0-34.0); MEAN CORPUSCULAR HGB CONC 32.7 g/dL (33.0-35.0); MEAN CORPUSCULAR VOLUME 90.5 fL (80.0-100.0); MEAN PLATELET VOLUME 7.9 fL (7.4-11.0); MONOCYTES # (AUTO) 0.9 x10^3/uL (0.3-0.8); MONOCYTES % (AUTO) 15.8 % (0.0-13.0); NEUTROPHILS # (AUTO) 4.1 x10^3/uL (2.2-4.8); NEUTROPHILS % (AUTO) 71.8 % (42.0-75.0); PLATELET COUNT 166 X10^3/uL (150.0-450.0); RED BLOOD COUNT 4.12 X10^6/uL (4.7-6.0); RED CELL DISTRIBUTION WIDTH 14.5 % (11.6-16.5); WHITE BLOOD COUNT 5.7 X10^3/uL (3.6-10.0)
[2023-12-06 05:59] LABS: ALANINE AMINOTRANSFERASE 93 Units/L (12-78); ALBUMIN 3.2 g/dL (3.4-5.0); ALKALINE PHOSPHATASE 36 Units/L (46-116); ASPARTATE AMINO TRANSFERASE 65 Units/L (15-37); BLOOD UREA NITROGEN 23 mg/dL (7-18); CALCIUM 8.3 mg/dL (8.5-10.1); CARBON DIOXIDE 25.3 mmol/L (21-32); CHLORIDE 100 mmol/L (98-107); COR CA(FOR HYPOALB) 8.9 mg/dL (8.5-10.1); CREATININE 1.14 mg/dL (0.70-1.30); GLUCOSE 98 mg/dL (65-99); SODIUM 135 mmol/L (136-145); TOTAL PROTEIN 5.3 g/dL (6.4-8.2); eGFR NON BLACK RACES > 60 (>60)
--- NOTE | 2023-12-06 07:46 | RAD ---
EXAM: AP chest HISTORY: Short of breath COMPARISON: 12/03/2023 FINDINGS: Cardiomegaly with increasing pulmonary venous congestion. Pleural effusions are noted left greater than right with suspect associated airspace involvement in the left lower lung. IMPRESSION: Similar cardiomegaly with increasing pulmonary vascular congestion. Asymmetric pleural effusions as before with suspect left lower lobe pneumonia or atelectasis. THIS IS AN ELECTRONICALLY VERIFIED FINAL REPORT 12/06/2023 7:38 AM - Electronically signed by Eduardo Roach MD
[2023-12-06] MEDS: LASIX IVP ONE (16:12)
[2023-12-06 17:25] VITALS: BP 159/94; PULSE 83; RESP 35; O2SAT 97
[2023-12-06] MEDS: K-DUR TAB 20 MEQ PO ONE (17:45)
[2023-12-06] MEDS: NS 1,000 ML IV 1,000 ML IV SCH (17:46)
== END 2023-12-06 17:30 | disposition home or self-care (01) | DRG 309 ==
LOC: ICU
PROVIDERS: ADMIT Internal Medicine; ATTEND Internal Medicine
DX: J90 Pleural effusion, not elsewhere classified; I25.10 Atherosclerotic heart disease of native coronary artery without angina pectoris; I50.9 Heart failure, unspecified; R60.0 Localized edema; I11.0 Hypertensive heart disease with heart failure; E78.2 Mixed hyperlipidemia; Z85.46 Personal history of malignant neoplasm of prostate; E87.1 Hypo-osmolality and hyponatremia; I48.91 Unspecified atrial fibrillation; R06.02 Shortness of breath

== ENCOUNTER 2024-01-20 20:49 | Inpatient (IN) ==
--- NOTE | 2024-01-20 20:51 | DR.GENAD ---
HPI Time Seen Time Seen by Provider: 01/20/24 20:51 HPI Comment HPI Comment: 88 y/o brought in by ems after called with concerns about bp being in the 90s; pt is not able to give any significant information; reports he began acting unusually earlier this morning; he continued to have moments of complete lucidness followed by times of confusion so when bp dropped, she wanted him evaluated; she says he's had no cough, fever, chills, abd pain, n/v/d, cp or rash; she takes care of him at home w/o help PMH PMH Past Surgical History: Yes Surgical History: Angioplasty/Stents Family History Family Medical History: Cancer ROS Review of Systems Unable to Obtain Due To: Altered mental status PE Vital Signs Vitals: Vital Signs Temperature 97.1 F Pulse Rate 97 Pulse Rate 88 Respiratory Rate 20 Respiratory Rate 20 Blood Pressure 146/62 Blood Pressure 140/54 O2 Sat by Pulse Oximetry 97 O2 Sat by Pulse Oximetry 96 General Limitations: No Limitations General Appearance: Lethargic (confused, speech mumbled) Head Head Exam: Normal Inspection Eyes Eye exam: Normal Appearance Neck Neck Exam: Normal Inspection Chest Chest Inspection: Normal Inspection Respiratory Respiratory Exam: Normal Lung Sounds Bilat Respiratory Exam: Bilateral: Clear to Auscultation Cardiovascular Cardiovascular Exam: Regular Rate and Normal Rhythm Abdominal Exam Abdominal Exam: Normal Inspection, Normal Bowel Sounds and Soft Extremities Extremities Exam: Normal Inspection Back Back Exam: Normal Inspection Psychiatric Psychiatric Exam: Normal Affect and Normal Mood Skin Skin Exam: Warm, Dry and Intact (scattered bruising) COURSE Consultation Call Returned: 00:05 (Dr Elizalde returned call and accepts admission for Dr Reed.) Critical Care Notes Total Time (mins): 30 Critical Diagnosis: metabolic encephalopathy, cystitis, hypernatremia, dehydration Critical Interventions: labs/xrays with interpretation of results gentle fluid hydration abx discussion with family re: diagnosis and tx plan discussion w/on-call physician regarding same ROR Labs Reviewed Laboratory Results Reviewed?: Yes 01/20/24 21:30 01/20/24 21:30 Laboratory: WBC 9.0 X10^3/uL (3.6-10.0) 01/20/24 21:30 RBC 4.73 X10^6/uL (4.7-6.0) 01/20/24 21:30 Hgb 14.5 g/dL (13.5-18.0) 01/20/24 21:30 Hct 44.5 % (42.0-54.0) 01/20/24 21:30 MCV 94.1 fL (80.0-100.0) 01/20/24 21:30 MCH 30.5 pg (27.0-34.0) 01/20/24: MCHC 32.5 g/dL (33.0-35.0) L 01/20/24: RDW 20.5 % (11.6-16.5) H 01/20/24 21:30 Plt Count 93 X10^3/uL (150.0-450.0) L 01/20/24 21: Plt Count Comment Decreased (ADEQUATE) 01/20/24: MPV 10.4 fL (7.4-11.0) 01/20/24 21: Neut % (Auto) 82.6 % (42.0-75.0) H 01/20/24: Lymph % (Auto) 7.9 % (21.0-51.0) L 01/20/24 21: [place] % (Auto) 8.7 % (0.0-13.0) 01/20/24 21: Eos % (Auto) 0.5 % (0.9-2.9) L 01/20/24: Baso % (Auto) 0.3 % (0.2-1.0) 01/20/24 21:30 Neut # (Auto) 7.4 x10^3/uL (2.2-4.8) H 01/20/24 21: Lymph # (Auto) 0.7 X10^3/uL (1.3-2.9) L 01/20/24 21:30 [place] # (Auto) 0.8 x10^3/uL (0.3-0.8) 01/20/24 21: Eos # (Auto) 0.0 x10^3/uL (0.0-0.2) 01/20/24 21:30 Baso # (Auto) 0.0 X10^3/uL (0.0-0.1) 01/20/24 21: Absolute Nucleated RBC 0.1 /100WBC 01/20/24 21:30 Plt Morphology Comment Normal (NORMAL) 01/20/24 21:30 RBC Morphology Abnormal (NORMAL) 01/20/24 21:30 Anisocytosis 1+ A 01/20/24 21:30 Ovalocytes Present 01/20/24 21:30 Acanthocytes (Spur) Present 01/20/24 21:30 Sodium 154 mmol/L (136-145) H* 01/20/24 21:30 Corrected Sodium 156 mmol/L (136-145) H 01/20/24 21:30 Potassium 2.6 mmol/L (3.5-5.1) L* 01/20/24 21:30 Chloride 111 mmol/L (98-107) H 01/20/24 21:30 Carbon Dioxide 38.8 mmol/L (21-32) H 01/20/24 21:30 BUN 38 mg/dL (7-18) H 01/20/24 21:30 Creatinine 1.39 mg/dL (0.70-1.30) H 01/20/24 21:30 Est GFR (MDRD) Af Amer > 60 (>60) 01/20/24 21:30 Est GFR (MDRD) Non-Af 51 (>60) L 01/20/24 21:30 Glucose 167 mg/dL (65-99) H 01/20/24 21:30 Calcium 8.6 mg/dL (8.5-10.1) 01/20/24:30 Corrected Calcium 10.0 mg/dL (8.5-10.1) 01/20/24:30 Total Bilirubin 3.60 mg/dL (0.2-1.0) H 01/20/24 21:30 AST 143 Units/L (15-37) H 01/20/24 21:30 ALT 100 Units/L (12-78) H 01/20/24 21:30 Alkaline Phosphatase 297 Units/L (46-116) H 01/20/24 21:30 Total Protein 6.4 g/dL (6.4-8.2) 01/20/24 21:30 Albumin 2.3 g/dL (3.4-5.0) L 01/20/24 21:30 Globulin 4.1 g/dL (2.5-4.5) 01/20/24 21:30 Albumin/Globulin Ratio 0.6 Ratio (1.1-2.1) L 01/20/24 21:30 Specimen Type Clean catch urine 01/20/24 21:15 Urine Color Dark yellow (YELLOW) 01/20/24 21:15 Urine Appearance Cloudy (CLEAR) 01/20/24 21:15 Urine pH 6.0 (5.0 - 8.0) 01/20/24 21:15 Ur Specific [place] 1.015 (1.000-1.030) 01/20/24 21:15 Urine Protein 2+ (NEGATIVE) 01/20/24 21:15 Urine Glucose (UA) 4+ (NEGATIVE) 01/20/24 21:15 Urine Ketones Negative (NEGATIVE) 01/20/24 21:15 Urine Blood Negative (NEGATIVE) 01/20/24 21:15 Urine Nitrite Negative (NEGATIVE) 01/20/24 21:15 Urine Bilirubin 1+ (NEGATIVE) 01/20/24 21:15 Urine Urobilinogen 4+ (NORMAL) 01/20/24 21:15 Ur Leukocyte Esterase 1+ (NEGATIVE) 01/20/24 21:15 Urine RBC 0-2 /HPF (0-3) 01/20/24 21:15 Urine WBC 10-20 /HPF (0-5) A 01/20/24 21:15 Ur Squamous Epith Cells Few /HPF (NEGATIVE) 01/20/24 21:15 Urine Bacteria 2+ /HPF (NEGATIVE) 01/20/24 21:15 Ur Culture Indicated? Yes/culture set up 01/20/24 21:15 SARS-CoV-2 (PCR) Negative (NEGATIVE) 01/20/24 22:20 Influenza Type A (PCR) Negative (NEGATIVE) 01/20/24 22:20 Influenza Type B (PCR) Negative (NEGATIVE) 01/20/24 22:20 RSV (PCR) Negative (NEGATIVE) 01/20/24 22:20 Other Results Comments: 88 y/o with worsening confusion x one day brought in by ems and found to have sodium 154, potassium 2.6 and what appears to be an kelly. He also has a uti; advised family pt will be admitted for abx and gentle hydration; and friend are in agreement. XRAY XRAY Interpreted by: Radiologist X-ray Results: ct brain: 1. No acute intracranial abnormality. 2. Senescent changes. 3. Mild sinusitis. Opioid Opioid Risk Tool Age (Farhan box if 16-45): No History of Preadolescent Sexual Abuse: No Total: 0 Total Score Risk Category: Low Risk Copyright: Hakeem HEAD predicting aberrant behaviors Discharge Plan Diagnosis Discharge Problem: Cystitis, Acute dehydration, Acute hypernatremia, Acute metabolic encephalo raf Discharge Plan Patient Disposition: ADMITTED INPATIENT Condition: Stable Prescriptions: No Action furosemide 20 mg tablet 20 mg PO QDAY spironolactone 50 mg tablet 50 mg PO BID simvastatin 20 mg tablet 20 mg PO QPM clopidogrel 75 mg tablet 75 mg PO QDAY nitrofurantoin monohyd/m-cryst 100 mg capsule 1 cap PO BID metoprolol succinate 50 mg tablet extended release 24 hr 50 mg PO QDAY aspirin 81 mg Tablet,Delayed Release (Dr/Ec) 81 mg PO DAILY amiodarone 200 mg Tablet 200 mg PO BID Qty: 60 0RF Eliquis 2.5 mg Tablet 2.5 mg PO BID Qty: 60 0RF Health Concerns: Post Hospitalization: new medications and changes needed to prevent readmission or further decline. Pt educated and given instructions on all concerns. Plan of Treatment: Continue with present treatment and follow up plan. Pt is to keep follow up appointment as instructed and take medications as ordered. Follow ups/Referrals Follow ups/Referrals: KECIA WATERS [Primary Care Provider] - 3 days
[2024-01-20 21:42] LABS: BASOPHILS % (AUTO) 0.3 % (0.2-1.0); EOSINOPHILS % (AUTO) 0.5 % (0.9-2.9); HEMATOCRIT 44.5 % (42.0-54.0); HEMOGLOBIN 14.5 g/dL (13.5-18.0); LYMPHOCYTES # (AUTO) 0.7 X10^3/uL (1.3-2.9); LYMPHOCYTES % (AUTO) 7.9 % (21.0-51.0); MEAN CORPUSCULAR HEMOGLOBIN 30.5 pg (27.0-34.0); MEAN CORPUSCULAR HGB CONC 32.5 g/dL (33.0-35.0); MEAN CORPUSCULAR VOLUME 94.1 fL (80.0-100.0); MEAN PLATELET VOLUME 10.4 fL (7.4-11.0); MONOCYTES # (AUTO) 0.8 x10^3/uL (0.3-0.8); MONOCYTES % (AUTO) 8.7 % (0.0-13.0); NEUTROPHILS # (AUTO) 7.4 x10^3/uL (2.2-4.8); NEUTROPHILS % (AUTO) 82.6 % (42.0-75.0); PLATELET COUNT 93 X10^3/uL (150.0-450.0); RED BLOOD COUNT 4.73 X10^6/uL (4.7-6.0); RED CELL DISTRIBUTION WIDTH 20.5 % (11.6-16.5)
[2024-01-20 21:56] LABS: ALANINE AMINOTRANSFERASE 100 Units/L (12-78); ALBUMIN 2.3 g/dL (3.4-5.0); ALKALINE PHOSPHATASE 297 Units/L (46-116); ASPARTATE AMINO TRANSFERASE 143 Units/L (15-37); BLOOD UREA NITROGEN 38 mg/dL (7-18); CALCIUM 8.6 mg/dL (8.5-10.1); CARBON DIOXIDE 38.8 mmol/L (21-32); CHLORIDE 111 mmol/L (98-107); COR NA(FOR HYPERGLY) 156 mmol/L (136-145); CREATININE 1.39 mg/dL (0.70-1.30); GLUCOSE 167 mg/dL (65-99); TOTAL PROTEIN 6.4 g/dL (6.4-8.2); eGFR NON BLACK RACES 51 (>60)
[2024-01-20 21:57] LABS: BILIRUBIN,URINE 1+ (NEGATIVE); BLOOD/HEMOGLOBIN,URINE NEGATIVE (NEGATIVE); GLUCOSE, URINE 4+ (NEGATIVE); KETONES,URINE NEGATIVE (NEGATIVE); LEUKOCYTE ESTERASE ,URINE 1+ (NEGATIVE); NITRITES,URINE NEGATIVE (NEGATIVE); PROTEIN,URINE 2+ (NEGATIVE); UROBILINOGEN,URINE 4+ (NORMAL)
[2024-01-20 21:59] LABS: POTASSIUM 2.6 mmol/L (3.5-5.1); SODIUM 154 mmol/L (136-145)
[2024-01-20 22:08] LABS: APPEARANCE,URINE CLOUDY (CLEAR); COLOR,URINE DARK YELLOW (YELLOW)
[2024-01-20 22:09] LABS: BACTERIA,URINE 2+ /HPF (NEGATIVE); RBC,URINE 0-2 /HPF (0-3); SQUAMOUS EPITHELIAL CELL,UR FEW /HPF (NEGATIVE)
--- NOTE | 2024-01-20 22:22 | CT ---
PROCEDURE: CT Head without IV Contrast.HISTORY: Altered mental status and confusion.TECHNIQUE: Axial images were performed through the head without the administration of IV contrast with multiplanar reformations . Dose reduction techniques including Automated Exposure Control (AEC) and adjustment of mA and kV were utilized .COMPARISON: None.TECHNICAL QUALITY: Satisfactory.FINDINGS:Brain shows no mass, hemorrhage, or acute stroke.Mild periventricular old micro ischemic changes. Moderate diffuse cerebral and cerebellar atrophy.Ventricles are normal size for patient's age.No acute skull or scalp abnormality.Scattered mild inflammatory mucosal changes paranasal sinuses. Clear mastoids.IMPRESSION:1. No acute intracranial abnormality.2. Senescent changes.3. Mild sinusitis.THIS IS AN ELECTRONICALLY VERIFIED FINAL REPORT01/20/2024 10:18 PM - Electronically signed by Vic Berger MD
[2024-01-20] MEDS: NS 1,000 ML IV 1,000 ML IV ONE (22:26)
[2024-01-20] MEDS: K-DUR TAB 20 MEQ PO STA (22:26)
[2024-01-20 22:28] LABS: ANISOCYTOSIS 1+; PLATELET MORPHOLOGY COMMENT NORMAL (NORMAL)
[2024-01-20 22:29] LABS: OVALOCYTES PRESENT
[2024-01-20] MEDS: ROCEPHIN VIAL 1 GRAM 1 G in NS 100 ML IV 100 ML IV SCH (23:11)
[2024-01-21] MEDS: NS 1,000 ML IV 1,000 ML IV SCH (01:00)
[2024-01-21] MEDS: CONSULT PHARMACY - POTASSIUM & MAGNESIUM XX SCH (01:42)
[2024-01-21 01:58] VITALS: BMI 22.1
[2024-01-21 05:19] LABS: BASOPHILS % (AUTO) 0.4 % (0.2-1.0); EOSINOPHILS % (AUTO) 0.5 % (0.9-2.9); HEMATOCRIT 40.3 % (42.0-54.0); LYMPHOCYTES # (AUTO) 0.8 X10^3/uL (1.3-2.9); LYMPHOCYTES % (AUTO) 10.6 % (21.0-51.0); MEAN CORPUSCULAR HEMOGLOBIN 30.1 pg (27.0-34.0); MEAN CORPUSCULAR HGB CONC 32.3 g/dL (33.0-35.0); MEAN CORPUSCULAR VOLUME 93.1 fL (80.0-100.0); MONOCYTES # (AUTO) 0.8 x10^3/uL (0.3-0.8); MONOCYTES % (AUTO) 10.1 % (0.0-13.0); NEUTROPHILS # (AUTO) 5.9 x10^3/uL (2.2-4.8); NEUTROPHILS % (AUTO) 78.4 % (42.0-75.0); PLATELET COUNT 104 X10^3/uL (150.0-450.0); RED BLOOD COUNT 4.32 X10^6/uL (4.7-6.0); RED CELL DISTRIBUTION WIDTH 20.5 % (11.6-16.5); WHITE BLOOD COUNT 7.5 X10^3/uL (3.6-10.0)
[2024-01-21 05:28] LABS: ALANINE AMINOTRANSFERASE 92 Units/L (12-78); ALBUMIN 1.9 g/dL (3.4-5.0); ALKALINE PHOSPHATASE 239 Units/L (46-116); ASPARTATE AMINO TRANSFERASE 108 Units/L (15-37); BLOOD UREA NITROGEN 32 mg/dL (7-18); CALCIUM 8.2 mg/dL (8.5-10.1); CARBON DIOXIDE 35.4 mmol/L (21-32); COR CA(FOR HYPOALB) 9.9 mg/dL (8.5-10.1); COR NA(FOR HYPERGLY) 158 mmol/L (136-145); CREATININE 1.19 mg/dL (0.70-1.30); GLUCOSE 169 mg/dL (65-99); TOTAL PROTEIN 5.7 g/dL (6.4-8.2); eGFR NON BLACK RACES > 60 (>60)
[2024-01-21 05:33] LABS: CHLORIDE 116 mmol/L (98-107); POTASSIUM 2.7 mmol/L (3.5-5.1); SODIUM 156 mmol/L (136-145)
[2024-01-21] MEDS ORDERED: NS 1/2 1,000 ML IV 1,000 ML IV SCH (06:00)
[2024-01-21 06:02] LABS: ANISOCYTOSIS 1+; OVALOCYTES PRESENT; PLATELET MORPHOLOGY COMMENT NORMAL (NORMAL)
[2024-01-21] MEDS ORDERED: CONSULT PHARMACY - POTASSIUM & MAGNESIUM XX SCH (07:00)
[2024-01-21] MEDS: NS 1/2 + KCL 20 MEQ/L 1,000 ML IV SCH (08:30)
[2024-01-21] MEDS ORDERED: K-RIDER 10 MEQ/100 ML WATER 10 MEQ/100 ML BAG IV SCH (09:00)
[2024-01-21] MEDS: POTASSIUM CHLORIDE IV SCH (10:49)
[2024-01-21] MEDS: D5W IV SCH (10:49)
--- NOTE | 2024-01-21 11:23 | DR.H&P ---
H&P History & Physical for Day of: H&P Date: 01/21/24 Chief Complaint Chief Complaint: confusion, weakness Allergies Allergies Allergy/AdvReac Type Severity Reaction Status Date / Time No Known Allergies Allergy Verified 12/02/23 18:03 History of Present Illness History of Present Illness: Mr Bailey is a 88y/o male with a PMH of CAD, CHF, Atrial fibrillation, CVA and HLD presented with increased weakness and confusion. states patient was confused and more weak yesterday. She also mentioned that his BP was in the low 90s. In the ER, he was noted to have eleva artur Na 154, K 2.6. UA was suggestive of infection. Ct-head did not show any acute changes. Patient was admitted to ICU for further care. He was started on hydration and potassium replacement. He was started on IV Rocephin. This morning, patient's at bedside. Patient states he feels better. He is oriented to person but not place or time. states patient has been declining since his last admission a month ago for atrial fibrillation. She states he was working with PT initially but for the past 2 weeks has been getting weaker. He had had poor oral intake for the past week. Labs/imaging reviewed -Na:156 K:2.7 BUN/Cr: 32/1.19 -Ct-head: no acute changes Plan: continue to monitor in ICU. Will change fluids to D5 + KCl. Monitor BMP prn, adjust fluids as needed. Will order MRI-brain to evaluate further. Neuro checks prn. Continue IV rocephin, follow urine Cx. Replace electrolytes as per protocol. Resume home medications. Monitor AM labs/imaging. Time spent for clinical assessment, reviewing labs/imaging, physical exam, decision making and documentation greater than 45 mins. Past Medical History Past Medical History: Coronary Artery Disease and CVA Past Surgical History Surgical History: Angioplasty/Stents and Other Family History Family Medical History: Cancer Social History Does patient currently use any type of tobacco product: No Have you used tobacco products in the last 12 months: No Type of Tobacco Use: None Does any household member use tobacco: No Alcohol Use: Occasionally Drug Use: None Medications Home Medications: Home Medications Medication Instructions Recorded Confirmed Type metoprolol succinate 50 mg 50 mg PO QDAY 12/02/23 01/21/24 History tablet,extended release 24 hr simvastatin 20 mg tablet 20 mg PO QPM 12/02/23 01/21/24 History furosemide 20 mg tablet 20 mg PO QDAY 01/20/24 01/20/24 History spironolactone 50 mg tablet 25 mg PO DAILY 01/20/24 01/21/24 History amiodarone 200 mg tablet 200 mg PO DAILY 01/21/24 01/21/24 History empagliflozin 10 mg tablet 10 mg PO QDAY 01/21/24 01/21/24 History (Jardiance) Labs 01/21/24 04:05 01/21/24 04:05 Labs: Laboratory WBC 7.5 X10^3/uL (3.6-10.0) 01/21/24 04:05 RBC 4.32 X10^6/uL (4.7-6.0) L 01/21/24 04:05 Hgb 13.0 g/dL (13.5-18.0) L 01/21/24 04:05 Hct 40.3 % (42.0-54.0) L 01/21/24 04:05 MCV 93.1 fL (80.0-100.0) 01/21/24 04:05 MCH 30.1 pg (27.0-34.0) 01/21/24 04:05 MCHC 32.3 g/dL (33.0-35.0) L 01/21/24 04:05 RDW 20.5 % (11.6-16.5) H 01/21/24 04:05 Plt Count 104 X10^3/uL (150.0-450.0) L 01/21/24 04:05 Plt Count Comment Decreased (ADEQUATE) 01/21/24 04:05 MPV 10.0 fL (7.4-11.0) 01/21/24 04:05 Neut % (Auto) 78.4 % (42.0-75.0) H 01/21/24 04:05 Lymph % (Auto) 10.6 % (21.0-51.0) L 01/21/24 04:05 [place] % (Auto) 10.1 % (0.0-13.0) 01/21/24 04:05 Eos % (Auto) 0.5 % (0.9-2.9) L 01/21/24 04:05 Baso % (Auto) 0.4 % (0.2-1.0) 01/21/24 04:05 Neut # (Auto) 5.9 x10^3/uL (2.2-4.8) H 01/21/24 04:05 Lymph # (Auto) 0.8 X10^3/uL (1.3-2.9) L 01/21/24 04:05 [place] # (Auto) 0.8 x10^3/uL (0.3-0.8) 01/21/24 04:05 Eos # (Auto) 0.0 x10^3/uL (0.0-0.2) 01/21/24 04:05 Baso # (Auto) 0.0 X10^3/uL (0.0-0.1) 01/21/24 04:05 Absolute Nucleated RBC 0.1 /100WBC 01/21/24 04:05 Plt Morphology Comment Normal (NORMAL) 01/21/24 04:05 RBC Morphology Abnormal (NORMAL) 01/21/24 04:05 Anisocytosis 1+ A 01/21/24 04:05 Ovalocytes Present 01/21/24 04:05 Acanthocytes (Spur) Present 01/21/24 04:05 Sodium 156 mmol/L (136-145) H* 01/21/24 04:05 Corrected Sodium 158 mmol/L (136-145) H 01/21/24 04:05 Potassium 2.7 mmol/L (3.5-5.1) L* 01/21/24 04:05 Chloride 116 mmol/L (98-107) H* 01/21/24 04:05 Carbon Dioxide 35.4 mmol/L (21-32) H 01/21/24 04:05 BUN 32 mg/dL (7-18) H 01/21/24 04:05 Creatinine 1.19 mg/dL (0.70-1.30) 01/21/24 04:05 Est GFR (MDRD) Af Amer > 60 (>60) 01/21/24 04:05 Est GFR (MDRD) Non-Af > 60 (>60) 01/21/24 04:05 Glucose 169 mg/dL (65-99) H 01/21/24 04:05 Calcium 8.2 mg/dL (8.5-10.1) L 01/21/24 04:05 Corrected Calcium 9.9 mg/dL (8.5-10.1) 01/21/24 04:05 Magnesium 2.2 mg/dL (2.0-2.9) 01/21/24 04:05 Total Bilirubin 2.00 mg/dL (0.2-1.0) H 01/21/24 04:05 AST 108 Units/L (15-37) H 01/21/24 04:05 ALT 92 Units/L (12-78) H 01/21/24 04:05 Alkaline Phosphatase 239 Units/L (46-116) H 01/21/24 04:05 Total Protein 5.7 g/dL (6.4-8.2) L 01/21/24 04:05 Albumin 1.9 g/dL (3.4-5.0) L 01/21/24 04:05 Globulin 3.8 g/dL (2.5-4.5) 01/21/24 04:05 Albumin/Globulin Ratio 0.5 Ratio (1.1-2.1) L 01/21/24 04:05 Specimen Type Clean catch urine 01/20/24 21:15 Urine Color Dark yellow (YELLOW) 01/20/24 21:15 Urine Appearance Cloudy (CLEAR) 01/20/24 21:15 Urine pH 6.0 (5.0 - 8.0) 01/20/24 21:15 Ur Specific [place] 1.015 (1.000-1.030) 01/20/24 21:15 Urine Protein 2+ (NEGATIVE) 01/20/24 21:15 Urine Glucose (UA) 4+ (NEGATIVE) 01/20/24 21:15 Urine Ketones Negative (NEGATIVE) 01/20/24 21:15 Urine Blood Negative (NEGATIVE) 01/20/24 21:15 Urine Nitrite Negative (NEGATIVE) 01/20/24 21:15 Urine Bilirubin 1+ (NEGATIVE) 01/20/24 21:15 Urine Urobilinogen 4+ (NORMAL) 01/20/24 21:15 Ur Leukocyte Esterase 1+ (NEGATIVE) 01/20/24 21:15 Urine RBC 0-2 /HPF (0-3) 01/20/24 21:15 Urine WBC 10-20 /HPF (0-5) A 01/20/24 21:15 Ur Squamous Epith Cells Few /HPF (NEGATIVE) 01/20/24 21:15 Urine Bacteria 2+ /HPF (NEGATIVE) 01/20/24 21:15 Ur Culture Indicated? Yes/culture set up 01/20/24 21:15 SARS-CoV-2 (PCR) Negative (NEGATIVE) 01/20/24 22:20 Influenza Type A (PCR) Negative (NEGATIVE) 01/20/24 22:20 Influenza Type B (PCR) Negative (NEGATIVE) 01/20/24 22:20 RSV (PCR) Negative (NEGATIVE) 01/20/24 22:20 Review of Systems Constitutional: Weakness Eyes: No Symptoms Reported ENT: No Symptoms Reported Respiratory: No Symptoms Reported Cardiovascular: No Symptoms Reported Gastrointestinal: No Symptoms Reported Genitourinary: No Symptoms Reported Musculoskeletal: No Symptoms Reported Skin: No Symptoms Reported Neurological: Confusion Physical Exam Vital Signs: Vital Signs Temperature 97.7 F Pulse Rate 72 Pulse Rate 68 Respiratory Rate 20 Blood Pressure 146/69 Blood Pressure 122/57 O2 Sat by Pulse Oximetry 94 O2 Sat by Pulse Oximetry 94 Oriented: Person Eyes: Normal Ear: Normal Throat: Dry Respiratory: Diminished Throughout Cardiovascular: Normal Auscultation: Bowel Sounds: Normal Palpation: Normal Tenderness: Normal Skin: Decreased [place]urg[place] Musculoskeletal: Normal Psychiatric: Normal Mood Description: Calm Affect: Normal Speech Pattern: Clear, Appropriate and Delayed Assessment/Plan (1) Acute hypernatremia: Status: Acute (2) Acute dehydration: Status: Acute (3) Cystitis: Status: Acute (4) AMS (altered mental status): Qualifiers: Altered mental status type: disorientation Qualified Code(s): R41.0 - Disorientation, unspecified Status: Acute (5) Hypokalemia: Status: Acute (6) Acute metabolic encephalopathy: Status: Acute (7) Atrial fibrillation: Qualifiers: Atrial fibrillation type: unspecified Qualified Code(s): I48.91 - Unspecified atrial fibrillation Status: Acute (8) CAD (coronary artery disease): Qualifiers: Coronary Disease-Associated Artery/Lesion type: [place] artery [place] vs. transplanted heart: [place] heart Associated angina: unspecified whether angina present Qualified Code(s): I25.10 - Atherosclerotic heart disease of [place] coronary artery without angina pectoris Status: Chronic (9) Hypertension: Qualifiers: Hypertension type: primary hypertension Qualified Code(s): I10 - Essential (primary) hypertension Status: Chronic
[2024-01-21 12:32] LABS: BLOOD UREA NITROGEN 29 mg/dL (7-18); CALCIUM 8.2 mg/dL (8.5-10.1); CARBON DIOXIDE 33.9 mmol/L (21-32); COR NA(FOR HYPERGLY) 156 mmol/L (136-145); CREATININE 1.08 mg/dL (0.70-1.30); GLUCOSE 143 mg/dL (65-99); POTASSIUM 3.1 mmol/L (3.5-5.1); eGFR NON BLACK RACES > 60 (>60)
[2024-01-21 12:38] LABS: CHLORIDE 117 mmol/L (98-107); SODIUM 155 mmol/L (136-145)
[2024-01-21] MEDS: ELIQUIS PO SCH (13:15)
[2024-01-21] MEDS: CORDARONE TAB 200 MG PO SCH (13:16)
[2024-01-21] MEDS: ALDACTONE TAB 25 MG PO SCH (13:16)
[2024-01-21] MEDS: TOPROL XL PO SCH (13:16)
[2024-01-21] MEDS: FARXIGA PO SCH (13:16)
--- NOTE | 2024-01-21 14:43 | MRI ---
EXAM:MRI brain without IV contrastHISTORY:confusion, delayed speech -COMPARISON:CT from previous dayTECHNIQUE:Multiplanar multi-sequence MRI of the brain was obtained without administration of IV contrast.FINDINGS:The cerebellar tonsils are normally positioned. Pituitary gland is normal in size. There is prominent diffuse volume loss in the brain with compensatory enlargement of the ventricular system.No areas of restricted diffusion. Mild confluent increased T2 signal is seen in the periventricular white matter likely due to chronic small-vessel ischemic changes or age-related changes. No evidence of intracranial hemorrhage or old microbleeds.Probable small mucocele or retention cyst is seen in the left maxillary sinus. Mild mucosal thickening is seen in the ethmoid air cells. Trace fluid is seen in the right mastoid air cells.IMPRESSION:No evidence of recent CVA.Prominent volume loss in the brain is out of proportion to the minimal chronic small-vessel ischemic changes. Appearance suggests dementia or other neurodegenerative disorder.THIS IS AN ELECTRONICALLY VERIFIED FINAL REPORT01/21/2024 2:40 PM - Electronically signed by Shawn Bear MD
[2024-01-21] MEDS: ZOCOR TAB 20 MG PO SCH (20:34)
[2024-01-22 05:26] LABS: BASOPHILS % (AUTO) 0.4 % (0.2-1.0); EOSINOPHILS # (AUTO) 0.1 x10^3/uL (0.0-0.2); EOSINOPHILS % (AUTO) 2.1 % (0.9-2.9); HEMATOCRIT 37.6 % (42.0-54.0); HEMOGLOBIN 12.2 g/dL (13.5-18.0); LYMPHOCYTES # (AUTO) 0.7 X10^3/uL (1.3-2.9); LYMPHOCYTES % (AUTO) 13.8 % (21.0-51.0); MEAN CORPUSCULAR HEMOGLOBIN 30.2 pg (27.0-34.0); MEAN CORPUSCULAR HGB CONC 32.5 g/dL (33.0-35.0); MEAN CORPUSCULAR VOLUME 93.1 fL (80.0-100.0); MEAN PLATELET VOLUME 9.8 fL (7.4-11.0); MONOCYTES # (AUTO) 0.5 x10^3/uL (0.3-0.8); MONOCYTES % (AUTO) 10.5 % (0.0-13.0); NEUTROPHILS # (AUTO) 3.8 x10^3/uL (2.2-4.8); NEUTROPHILS % (AUTO) 73.2 % (42.0-75.0); PLATELET COUNT 104 X10^3/uL (150.0-450.0); RED BLOOD COUNT 4.04 X10^6/uL (4.7-6.0); RED CELL DISTRIBUTION WIDTH 20.1 % (11.6-16.5); WHITE BLOOD COUNT 5.2 X10^3/uL (3.6-10.0)
[2024-01-22 05:44] LABS: ALANINE AMINOTRANSFERASE 65 Units/L (12-78); ALBUMIN 1.7 g/dL (3.4-5.0); ALKALINE PHOSPHATASE 174 Units/L (46-116); ASPARTATE AMINO TRANSFERASE 45 Units/L (15-37); BLOOD UREA NITROGEN 22 mg/dL (7-18); CALCIUM 7.9 mg/dL (8.5-10.1); CARBON DIOXIDE 32.8 mmol/L (21-32); CHLORIDE 114 mmol/L (98-107); COR CA(FOR HYPOALB) 9.7 mg/dL (8.5-10.1); COR NA(FOR HYPERGLY) 154 mmol/L (136-145); CREATININE 0.91 mg/dL (0.70-1.30); GLUCOSE 141 mg/dL (65-99); POTASSIUM 3.4 mmol/L (3.5-5.1); TOTAL PROTEIN 5.3 g/dL (6.4-8.2); eGFR NON BLACK RACES > 60 (>60)
[2024-01-22 06:00] LABS: SODIUM 153 mmol/L (136-145)
[2024-01-22 06:18] LABS: ANISOCYTOSIS 1+; BURR CELLS PRESENT; OVALOCYTES PRESENT; PLATELET MORPHOLOGY COMMENT NORMAL (NORMAL)
--- NOTE | 2024-01-22 10:24 | PCM.PROG ---
Progress Note Progress Note for Day of Date of Exam: 01/22/24 Subjective Subjective: Pt is a 88y/o male with a PMH of Dementia, CAD, CHF, Atrial fibrillation, CVA and HLD admitted for acute cystitis, dehydration, altered mental status, and hypotension. This morning he is resting in bed, patient's at bedside. He reports feeling a little better and is more alert than he w as yesterday. No acute events overnight. Labs/imaging reviewed - WBC 5.3, hemoglobin 12.2, platelets 104, sodium 153, potassium 3.4, creatinine 0.91, glucose 141, Urine culture contamination. -MRI brain: No evidence of recent CVA. Prominent volume loss in the brain is out of proportion to the minimal chronic small-vessel ischemic changes. Appearance suggests dementia or other neurodegenerative disorder. Plan: Will continue to monitor in ICU. Continue IVF D5w + KCl. Monitor BMP prn, adjust fluids as needed. MRI of the brain reveals dementia or other neurodegenerative disorder. Neuro checks prn. Continue IV rocephin. Replace electrolytes as per protocol. Home medications have been resumed. Physical therapy working with patient, recommends physical rehab placement. Will have case management work on placement. Monitor AM labs/imaging. Time spent for clinical assessment, reviewing labs/imaging, physical exam, decision making and documentation greater than 45 mins. Past Medical Family Social History Allergies: Allergies No Known Allergies Allergy (Verified 12/02/23 18:03) Review of Systems ROS changes noted: see HPI Vital Signs and I&O's Vital Signs: Vital Signs Temperature 98.0 F Pulse Rate 71 Pulse Rate 62 Respiratory Rate 20 Respiratory Rate 18 Blood Pressure 136/66 Blood Pressure 117/62 O2 Sat by Pulse Oximetry 100 O2 Sat by Pulse Oximetry 99 Intake and Output: Intake & Output 01/19/24 01/20/24 01/21/24 01/22/24 23:59 23:59 23:59 23:59 Intake Total 2486 / 2486 452 / 452 Balance 2486 / 2486 452 / 452 Physical Exam Oriented: Person Eyes: Normal Ear: Normal Throat: Normal Respiratory: Normal Cardiovascular: Normal Auscultation: Bowel Sounds: Normal Tenderness: Normal Skin: Decreased [place]urg[place] Musculoskeletal: Normal Psychiatric: Normal Mood Description: Calm and Withdrawn Affect: Normal Speech Pattern: Clear Laboratory and Diagnostics 01/22/24 04:10 01/22/24 04:10 Labs: 01/20/24 21:15 Urine,Clean Catch Urine Culture - Final Laboratory WBC 5.2 X10^3/uL (3.6-10.0) 01/22/24 04:10 RBC 4.04 X10^6/uL (4.7-6.0) L 01/22/24 04:10 Hgb 12.2 g/dL (13.5-18.0) L 01/22/24 04:10 Hct 37.6 % (42.0-54.0) L 01/22/24 04:10 MCV 93.1 fL (80.0-100.0) 01/22/24 04:10 MCH 30.2 pg (27.0-34.0) 01/22/24 04:10 MCHC 32.5 g/dL (33.0-35.0) L 01/22/24 04:10 RDW 20.1 % (11.6-16.5) H 01/22/24 04:10 Plt Count 104 X10^3/uL (150.0-450.0) L 01/22/24 04:10 Plt Count Comment Decreased (ADEQUATE) 01/22/24 04:10 MPV 9.8 fL (7.4-11.0) 01/22/24 04:10 Neut % (Auto) 73.2 % (42.0-75.0) 01/22/24 04:10 Lymph % (Auto) 13.8 % (21.0-51.0) L 01/22/24 04:10 [place] % (Auto) 10.5 % (0.0-13.0) 01/22/24 04:10 Eos % (Auto) 2.1 % (0.9-2.9) 01/22/24 04:10 Baso % (Auto) 0.4 % (0.2-1.0) 01/22/24 04:10 Neut # (Auto) 3.8 x10^3/uL (2.2-4.8) 01/22/24 04:10 Lymph # (Auto) 0.7 X10^3/uL (1.3-2.9) L 01/22/24 04:10 [place] # (Auto) 0.5 x10^3/uL (0.3-0.8) 01/22/24 04:10 Eos # (Auto) 0.1 x10^3/uL (0.0-0.2) 01/22/24 04:10 Baso # (Auto) 0.0 X10^3/uL (0.0-0.1) 01/22/24 04:10 Absolute Nucleated RBC 0.1 /100WBC 01/22/24 04:10 Plt Morphology Comment Normal (NORMAL) 01/22/24 04:10 RBC Morphology Abnormal (NORMAL) 01/22/24 04:10 Anisocytosis 1+ A 01/22/24 04:10 Ovalocytes Present 01/22/24 04:10 Keerthi Cells Present 01/22/24 04:10 Acanthocytes (Spur) Present 01/21/24 04:05 Sodium 153 mmol/L (136-145) H* 01/22/24 04:10 Corrected Sodium 154 mmol/L (136-145) H 01/22/24 04:10 Potassium 3.4 mmol/L (3.5-5.1) L 01/22/24 04:10 Chloride 114 mmol/L (98-107) H 01/22/24 04:10 Carbon Dioxide 32.8 mmol/L (21-32) H 01/22/24 04:10 BUN 22 mg/dL (7-18) H 01/22/24 04:10 Creatinine 0.91 mg/dL (0.70-1.30) 01/22/24 04:10 Est GFR (MDRD) Af Amer > 60 (>60) 01/22/24 04:10 Est GFR (MDRD) Non-Af > 60 (>60) 01/22/24 04:10 Glucose 141 mg/dL (65-99) H 01/22/24 04:10 Calcium 7.9 mg/dL (8.5-10.1) L 01/22/24 04:10 Corrected Calcium 9.7 mg/dL (8.5-10.1) 01/22/24 04:10 Magnesium 2.2 mg/dL (2.0-2.9) 01/21/24 04:05 Total Bilirubin 1.10 mg/dL (0.2-1.0) H 01/22/24 04:10 AST 45 Units/L (15-37) H 01/22/24 04:10 ALT 65 Units/L (12-78) 01/22/24 04:10 Alkaline Phosphatase 174 Units/L (46-116) H 01/22/24 04:10 Total Protein 5.3 g/dL (6.4-8.2) L 01/22/24 04:10 Albumin 1.7 g/dL (3.4-5.0) L 01/22/24 04:10 Globulin 3.6 g/dL (2.5-4.5) 01/22/24 04:10 Albumin/Globulin Ratio 0.5 Ratio (1.1-2.1) L 01/22/24 04:10 Specimen Type Clean catch urine 01/20/24 21:15 Urine Color Dark yellow (YELLOW) 01/20/24 21:15 Urine Appearance Cloudy (CLEAR) 01/20/24 21:15 Urine pH 6.0 (5.0 - 8.0) 01/20/24 21:15 Ur Specific [place] 1.015 (1.000-1.030) 01/20/24 21:15 Urine Protein 2+ (NEGATIVE) 01/20/24 21:15 Urine Glucose (UA) 4+ (NEGATIVE) 01/20/24 21:15 Urine Ketones Negative (NEGATIVE) 01/20/24 21:15 Urine Blood Negative (NEGATIVE) 01/20/24 21:15 Urine Nitrite Negative (NEGATIVE) 01/20/24 21:15 Urine Bilirubin 1+ (NEGATIVE) 01/20/24 21:15 Urine Urobilinogen 4+ (NORMAL) 01/20/24 21:15 Ur Leukocyte Esterase 1+ (NEGATIVE) 01/20/24 21:15 Urine RBC 0-2 /HPF (0-3) 01/20/24 21:15 Urine WBC 10-20 /HPF (0-5) A 01/20/24 21:15 Ur Squamous Epith Cells Few /HPF (NEGATIVE) 01/20/24 21:15 Urine Bacteria 2+ /HPF (NEGATIVE) 01/20/24 21:15 Ur Culture Indicated? Yes/culture set up 01/20/24 21:15 SARS-CoV-2 (PCR) Negative (NEGATIVE) 01/20/24 22:20 Influenza Type A (PCR) Negative (NEGATIVE) 01/20/24 22:20 Influenza Type B (PCR) Negative (NEGATIVE) 01/20/24 22:20 RSV (PCR) Negative (NEGATIVE) 01/20/24 22:20 Plan (1) Acute hypernatremia: Status: Acute (2) Acute dehydration: Status: Acute (3) Cystitis: Status: Acute (4) AMS (altered mental status): Status: Acute Qualifiers: Altered mental status type: disorientation Qualified Code(s): R41.0 - Disorientation, unspecified (5) Hypokalemia: Status: Acute (6) Acute metabolic encephalopathy: Status: Acute (7) Atrial fibrillation: Status: Acute Qualifiers: Atrial fibrillation type: unspecified Qualified Code(s): I48.91 - Unspecified atrial fibrillation (8) CAD (coronary artery disease): Status: Chronic Qualifiers: Coronary Disease-Associated Artery/Lesion type: [place] artery [place] vs. transplanted heart: [place] heart Associated angina: unspecified whether angina present Qualified Code(s): I25.10 - Atherosclerotic heart disease of [place] coronary artery without angina pectoris (9) Hypertension: Status: Chronic Qualifiers: Hypertension type: primary hypertension Qualified Code(s): I10 - Essential (primary) hypertension
[2024-01-23 05:31] LABS: BASOPHILS % (AUTO) 0.5 % (0.2-1.0); EOSINOPHILS # (AUTO) 0.1 x10^3/uL (0.0-0.2); HEMATOCRIT 38.9 % (42.0-54.0); HEMOGLOBIN 12.7 g/dL (13.5-18.0); LYMPHOCYTES # (AUTO) 0.9 X10^3/uL (1.3-2.9); LYMPHOCYTES % (AUTO) 16.1 % (21.0-51.0); MEAN CORPUSCULAR HEMOGLOBIN 30.2 pg (27.0-34.0); MEAN CORPUSCULAR HGB CONC 32.7 g/dL (33.0-35.0); MEAN CORPUSCULAR VOLUME 92.5 fL (80.0-100.0); MEAN PLATELET VOLUME 10.1 fL (7.4-11.0); MONOCYTES # (AUTO) 0.6 x10^3/uL (0.3-0.8); MONOCYTES % (AUTO) 11.3 % (0.0-13.0); NEUTROPHILS # (AUTO) 3.8 x10^3/uL (2.2-4.8); NEUTROPHILS % (AUTO) 70.1 % (42.0-75.0); PLATELET COUNT 115 X10^3/uL (150.0-450.0); RED CELL DISTRIBUTION WIDTH 20.2 % (11.6-16.5); WHITE BLOOD COUNT 5.4 X10^3/uL (3.6-10.0)
[2024-01-23 05:55] LABS: ALANINE AMINOTRANSFERASE 46 Units/L (12-78); ALBUMIN 1.7 g/dL (3.4-5.0); ALKALINE PHOSPHATASE 151 Units/L (46-116); ASPARTATE AMINO TRANSFERASE 29 Units/L (15-37); BLOOD UREA NITROGEN 17 mg/dL (7-18); CALCIUM 7.9 mg/dL (8.5-10.1); CHLORIDE 110 mmol/L (98-107); COR CA(FOR HYPOALB) 9.7 mg/dL (8.5-10.1); COR NA(FOR HYPERGLY) 146 mmol/L (136-145); CREATININE 0.89 mg/dL (0.70-1.30); GLUCOSE 111 mg/dL (65-99); POTASSIUM 3.9 mmol/L (3.5-5.1); SODIUM 146 mmol/L (136-145); TOTAL PROTEIN 5.3 g/dL (6.4-8.2); eGFR NON BLACK RACES > 60 (>60)
[2024-01-23 06:03] LABS: ANISOCYTOSIS 1+; OVALOCYTES SLIGHT; PLATELET MORPHOLOGY COMMENT NORMAL (NORMAL)
--- NOTE | 2024-01-23 19:03 | PCM.PROG ---
Progress Note Progress Note for Day of Date of Exam: 01/23/24 Subjective Subjective: Pt is a 88y/o male with a PMH of Dementia, CAD, CHF, Atrial fibrillation, CVA and HLD admitted for acute cystitis, dehydration, altered mental status, and hypotension. This morning he reports feeling better. No acute events overnight. He is currently waiting for physical rehab placement. Labs/imaging reviewed - WBC 5.4, hemoglobin 12.7, platelets 115, sodium 146, potassium 3.9, creatinine 0.89, glucose 111, Urine culture contamination. -MRI brain: No evidence of recent CVA. Prominent volume loss in the brain is out of proportion to the minimal chronic small-vessel ischemic changes. Appearance suggests dementia or other neurodegenerative disorder. Plan: Will continue to monitor. Continue IVF D5w + KCl. Hypernatremia has improved. Monitor BMP prn, adjust fluids as needed. MRI of the brain reveals dementia or other neurodegenerative disorder. Neuro checks prn. Continue IV rocephin. Replace electrolytes as per protocol. Home medications have been resumed. Physical therapy working with patient, recommends physical rehab placement. Will have case management work on placement. Monitor AM labs/imaging. Past Medical Family Social History Allergies: Allergies No Known Allergies Allergy (Verified 12/02/23 18:03) Review of Systems ROS changes noted: see HPI Vital Signs and I&O's Vital Signs: Vital Signs Temperature 97.6 F Pulse Rate 70 Pulse Rate 71 Pulse Rate 70 Pulse Rate 75 Pulse Rate 75 Blood Pressure 159/80 Blood Pressure 145/98 Blood Pressure 134/67 Blood Pressure 148/83 O2 Sat by Pulse Oximetry 99 O2 Sat by Pulse Oximetry 100 O2 Sat by Pulse Oximetry 98 O2 Sat by Pulse Oximetry 94 O2 Sat by Pulse Oximetry 96 Intake and Output: Intake & Output 01/20/24 01/21/24 01/22/24 01/23/24 23:59 23:59 23:59 23:59 Intake Total 2486 / 2486 1200 / 1200 1621 / 1621 Balance 2486 / 2486 1200 / 1200 1621 / 1621 Physical Exam Oriented: Person Eyes: Normal Ear: Normal Throat: Normal Respiratory: Normal Cardiovascular: Normal Auscultation: Bowel Sounds: Normal Tenderness: Normal Skin: Decreased [place] Musculoskeletal: Normal Psychiatric: Normal Mood Description: Calm and Appropriate Affect: Normal Speech Pattern: Delayed Laboratory and Diagnostics 01/23/24 04:25 04/19/24 04:25 Labs: 01/20/24 21:15 Urine,Clean Catch Urine Culture - Final Laboratory WBC 5.4 X10^3/uL (3.6-10.0) 01/23/24 04:25 RBC 4.20 X10^6/uL (4.7-6.0) L 01/23/24 04:25 Hgb 12.7 g/dL (13.5-18.0) L 01/23/24 04:25 Hct 38.9 % (42.0-54.0) L 01/23/24 04:25 MCV 92.5 fL (80.0-100.0) 01/23/24 04:25 MCH 30.2 pg (27.0-34.0) 01/23/24 04:25 MCHC 32.7 g/dL (33.0-35.0) L 01/23/24 04:25 RDW 20.2 % (11.6-16.5) H 01/23/24 04:25 Plt Count 115 X10^3/uL (150.0-450.0) L 01/23/24 04:25 Plt Count Comment Decreased (ADEQUATE) 01/23/24 04:25 MPV 10.1 fL (7.4-11.0) 01/23/24 04:25 Neut % (Auto) 70.1 % (42.0-75.0) 01/23/24 04:25 Lymph % (Auto) 16.1 % (21.0-51.0) L 01/23/24 04:25 [place] % (Auto) 11.3 % (0.0-13.0) 01/23/24 04:25 Eos % (Auto) 2.0 % (0.9-2.9) 01/23/24 04:25 Baso % (Auto) 0.5 % (0.2-1.0) 01/23/24 04:25 Neut # (Auto) 3.8 x10^3/uL (2.2-4.8) 01/23/24 04:25 Lymph # (Auto) 0.9 X10^3/uL (1.3-2.9) L 01/23/24 04:25 [place] # (Auto) 0.6 x10^3/uL (0.3-0.8) 01/23/24 04:25 Eos # (Auto) 0.1 x10^3/uL (0.0-0.2) 01/23/24 04:25 Baso # (Auto) 0.0 X10^3/uL (0.0-0.1) 01/23/24 04:25 Absolute Nucleated RBC 0.1 /100WBC 01/23/24 04:25 Plt Morphology Comment Normal (NORMAL) 01/23/24 04:25 RBC Morphology Abnormal (NORMAL) 01/23/24 04:25 Anisocytosis 1+ A 01/23/24 04:25 Ovalocytes Slight A 01/23/24 04:25 Keerthi Cells Present 01/22/24 04:10 Acanthocytes (Spur) Present 01/21/24 04:05 Sodium 146 mmol/L (136-145) H 01/23/24 04:25 Corrected Sodium 146 mmol/L (136-145) H 01/23/24 04:25 Potassium 3.9 mmol/L (3.5-5.1) 01/23/24 04:25 Chloride 110 mmol/L (98-107) H 01/23/24 04:25 Carbon Dioxide 30.0 mmol/L (21-32) 01/23/24 04:25 BUN 17 mg/dL (7-18) 01/23/24 04:25 Creatinine 0.89 mg/dL (0.70-1.30) 01/23/24 04:25 Est GFR (MDRD) Af Amer > 60 (>60) 01/23/24 04:25 Est GFR (MDRD) Non-Af > 60 (>60) 01/23/24 04:25 Glucose 111 mg/dL (65-99) H 01/23/24 04:25 POC Glucose (mg/dL) 125 mg/dL (65-99) H 01/22/24 11:46 Calcium 7.9 mg/dL (8.5-10.1) L 01/23/24 04:25 Corrected Calcium 9.7 mg/dL (8.5-10.1) 01/23/24 04:25 Magnesium 2.2 mg/dL (2.0-2.9) 01/21/24 04:05 Total Bilirubin 1.00 mg/dL (0.2-1.0) 01/23/24 04:25 AST 29 Units/L (15-37) 01/23/24 04:25 ALT 46 Units/L (12-78) 01/23/24 04:25 Alkaline Phosphatase 151 Units/L (46-116) H 01/23/24 04:25 Total Protein 5.3 g/dL (6.4-8.2) L 01/23/24 04:25 Albumin 1.7 g/dL (3.4-5.0) L 01/23/24 04:25 Globulin 3.6 g/dL (2.5-4.5) 01/23/24 04:25 Albumin/Globulin Ratio 0.5 Ratio (1.1-2.1) L 01/23/24 04:25 Specimen Type Clean catch urine 01/20/24 21:15 Urine Color Dark yellow (YELLOW) 01/20/24 21:15 Urine Appearance Cloudy (CLEAR) 01/20/24 21:15 Urine pH 6.0 (5.0 - 8.0) 01/20/24 21:15 Ur Specific [place] 1.015 (1.000-1.030) 01/20/24 21:15 Urine Protein 2+ (NEGATIVE) 01/20/24 21:15 Urine Glucose (UA) 4+ (NEGATIVE) 01/20/24 21:15 Urine Ketones Negative (NEGATIVE) 01/20/24 21:15 Urine Blood Negative (NEGATIVE) 01/20/24 21:15 Urine Nitrite Negative (NEGATIVE) 01/20/24 21:15 Urine Bilirubin 1+ (NEGATIVE) 01/20/24 21:15 Urine Urobilinogen 4+ (NORMAL) 01/20/24 21:15 Ur Leukocyte Esterase 1+ (NEGATIVE) 01/20/24 21:15 Urine RBC 0-2 /HPF (0-3) 01/20/24 21:15 Urine WBC 10-20 /HPF (0-5) A 01/20/24 21:15 Ur Squamous Epith Cells Few /HPF (NEGATIVE) 01/20/24 21:15 Urine Bacteria 2+ /HPF (NEGATIVE) 01/20/24 21:15 Ur Culture Indicated? Yes/culture set up 01/20/24 21:15 SARS-CoV-2 (PCR) Negative (NEGATIVE) 01/20/24 22:20 Influenza Type A (PCR) Negative (NEGATIVE) 01/20/24 22:20 Influenza Type B (PCR) Negative (NEGATIVE) 01/20/24 22:20 RSV (PCR) Negative (NEGATIVE) 01/20/24 22:20 Plan (1) Acute hypernatremia: Status: Acute (2) Acute dehydration: Status: Acute (3) Cystitis: Status: Acute (4) AMS (altered mental status): Status: Acute Qualifiers: Altered mental status type: disorientation Qualified Code(s): R41.0 - Disorientation, unspecified (5) Hypokalemia: Status: Acute (6) Acute metabolic encephalopathy: Status: Acute (7) Atrial fibrillation: Status: Acute Qualifiers: Atrial fibrillation type: unspecified Qualified Code(s): I48.91 - Unspecified atrial fibrillation (8) CAD (coronary artery disease): Status: Chronic Qualifiers: Coronary Disease-Associated Artery/Lesion type: [place] artery [place] vs. transplanted heart: [place] heart Associated angina: unspecified whether angina present Qualified Code(s): I25.10 - Atherosclerotic heart disease of [place] coronary artery without angina pectoris (9) Hypertension: Status: Chronic Qualifiers: Hypertension type: primary hypertension Qualified Code(s): I10 - Essential (primary) hypertension
[2024-01-24 05:43] LABS: BASOPHILS % (AUTO) 0.5 % (0.2-1.0); EOSINOPHILS # (AUTO) 0.1 x10^3/uL (0.0-0.2); EOSINOPHILS % (AUTO) 1.3 % (0.9-2.9); HEMATOCRIT 42.4 % (42.0-54.0); LYMPHOCYTES # (AUTO) 0.8 X10^3/uL (1.3-2.9); LYMPHOCYTES % (AUTO) 12.9 % (21.0-51.0); MEAN CORPUSCULAR HEMOGLOBIN 30.3 pg (27.0-34.0); MEAN CORPUSCULAR HGB CONC 32.9 g/dL (33.0-35.0); MEAN CORPUSCULAR VOLUME 92.2 fL (80.0-100.0); MEAN PLATELET VOLUME 9.8 fL (7.4-11.0); MONOCYTES # (AUTO) 0.7 x10^3/uL (0.3-0.8); MONOCYTES % (AUTO) 11.1 % (0.0-13.0); NEUTROPHILS # (AUTO) 4.5 x10^3/uL (2.2-4.8); NEUTROPHILS % (AUTO) 74.2 % (42.0-75.0); PLATELET COUNT 140 X10^3/uL (150.0-450.0); RED CELL DISTRIBUTION WIDTH 20.1 % (11.6-16.5)
[2024-01-24 05:48] LABS: BLOOD UREA NITROGEN 10 mg/dL (7-18); CALCIUM 8.4 mg/dL (8.5-10.1); CARBON DIOXIDE 25.8 mmol/L (21-32); CHLORIDE 108 mmol/L (98-107); COR NA(FOR HYPERGLY) 143 mmol/L (136-145); CREATININE 0.89 mg/dL (0.70-1.30); GLUCOSE 132 mg/dL (65-99); POTASSIUM 4.7 mmol/L (3.5-5.1); SODIUM 142 mmol/L (136-145); eGFR NON BLACK RACES > 60 (>60)
[2024-01-24 06:05] LABS: ANISOCYTOSIS 1+; PLATELET MORPHOLOGY COMMENT NORMAL (NORMAL)
[2024-01-24 06:06] LABS: ALANINE AMINOTRANSFERASE 44 Units/L (12-78); ALBUMIN 1.9 g/dL (3.4-5.0); ALKALINE PHOSPHATASE 149 Units/L (46-116); ASPARTATE AMINO TRANSFERASE 29 Units/L (15-37); COR CA(FOR HYPOALB) 10.1 mg/dL (8.5-10.1); OVALOCYTES SLIGHT
[2024-01-24] MEDS: D5W 1,000 ML IV 1,000 ML IV SCH (08:22)
[2024-01-24] MEDS: COLACE CAP 100 MG PO SCH (20:28)
[2024-01-25 05:32] LABS: BASOPHILS % (AUTO) 0.4 % (0.2-1.0); EOSINOPHILS # (AUTO) 0.1 x10^3/uL (0.0-0.2); EOSINOPHILS % (AUTO) 1.8 % (0.9-2.9); HEMATOCRIT 41.7 % (42.0-54.0); HEMOGLOBIN 13.9 g/dL (13.5-18.0); LYMPHOCYTES # (AUTO) 0.8 X10^3/uL (1.3-2.9); LYMPHOCYTES % (AUTO) 11.5 % (21.0-51.0); MEAN CORPUSCULAR HEMOGLOBIN 30.6 pg (27.0-34.0); MEAN CORPUSCULAR HGB CONC 33.3 g/dL (33.0-35.0); MEAN CORPUSCULAR VOLUME 91.9 fL (80.0-100.0); MEAN PLATELET VOLUME 9.5 fL (7.4-11.0); MONOCYTES # (AUTO) 0.7 x10^3/uL (0.3-0.8); MONOCYTES % (AUTO) 9.7 % (0.0-13.0); NEUTROPHILS # (AUTO) 5.3 x10^3/uL (2.2-4.8); NEUTROPHILS % (AUTO) 76.6 % (42.0-75.0); PLATELET COUNT 153 X10^3/uL (150.0-450.0); RED BLOOD COUNT 4.53 X10^6/uL (4.7-6.0); RED CELL DISTRIBUTION WIDTH 19.9 % (11.6-16.5); WHITE BLOOD COUNT 6.9 X10^3/uL (3.6-10.0)
[2024-01-25 05:46] LABS: ALANINE AMINOTRANSFERASE 36 Units/L (12-78); ALBUMIN 1.8 g/dL (3.4-5.0); ALKALINE PHOSPHATASE 128 Units/L (46-116); ASPARTATE AMINO TRANSFERASE 28 Units/L (15-37); BLOOD UREA NITROGEN 9 mg/dL (7-18); CALCIUM 8.2 mg/dL (8.5-10.1); CARBON DIOXIDE 25.7 mmol/L (21-32); CHLORIDE 103 mmol/L (98-107); COR NA(FOR HYPERGLY) 136 mmol/L (136-145); GLUCOSE 134 mg/dL (65-99); POTASSIUM 4.3 mmol/L (3.5-5.1); SODIUM 135 mmol/L (136-145); TOTAL PROTEIN 5.7 g/dL (6.4-8.2); eGFR NON BLACK RACES > 60 (>60)
[2024-01-25] MEDS: MILK OF MAGNESIA PO SCH (09:07)
[2024-01-26 00:15] VITALS: TEMP 97.6
[2024-01-26 04:05] VITALS: RESP 14
[2024-01-26 06:29] LABS: BASOPHILS % (AUTO) 0.5 % (0.2-1.0); EOSINOPHILS # (AUTO) 0.1 x10^3/uL (0.0-0.2); EOSINOPHILS % (AUTO) 1.4 % (0.9-2.9); HEMATOCRIT 41.2 % (42.0-54.0); HEMOGLOBIN 13.8 g/dL (13.5-18.0); LYMPHOCYTES # (AUTO) 1.1 X10^3/uL (1.3-2.9); LYMPHOCYTES % (AUTO) 14.7 % (21.0-51.0); MEAN CORPUSCULAR HEMOGLOBIN 30.4 pg (27.0-34.0); MEAN CORPUSCULAR HGB CONC 33.4 g/dL (33.0-35.0); MEAN CORPUSCULAR VOLUME 91.1 fL (80.0-100.0); MEAN PLATELET VOLUME 9.6 fL (7.4-11.0); MONOCYTES # (AUTO) 0.8 x10^3/uL (0.3-0.8); MONOCYTES % (AUTO) 10.1 % (0.0-13.0); NEUTROPHILS # (AUTO) 5.6 x10^3/uL (2.2-4.8); NEUTROPHILS % (AUTO) 73.3 % (42.0-75.0); PLATELET COUNT 168 X10^3/uL (150.0-450.0); RED BLOOD COUNT 4.52 X10^6/uL (4.7-6.0); RED CELL DISTRIBUTION WIDTH 20.2 % (11.6-16.5); WHITE BLOOD COUNT 7.6 X10^3/uL (3.6-10.0)
[2024-01-26 06:52] LABS: ANISOCYTOSIS 1+; PLATELET MORPHOLOGY COMMENT NORMAL (NORMAL)
[2024-01-26 06:53] LABS: ALANINE AMINOTRANSFERASE 40 Units/L (12-78); ALBUMIN 1.7 g/dL (3.4-5.0); ALKALINE PHOSPHATASE 121 Units/L (46-116); ASPARTATE AMINO TRANSFERASE 30 Units/L (15-37); BLOOD UREA NITROGEN 10 mg/dL (7-18); CHLORIDE 102 mmol/L (98-107); COR CA(FOR HYPOALB) 9.8 mg/dL (8.5-10.1); COR NA(FOR HYPERGLY) 135 mmol/L (136-145); CREATININE 0.85 mg/dL (0.70-1.30); GLUCOSE 137 mg/dL (65-99); POTASSIUM 4.6 mmol/L (3.5-5.1); SODIUM 134 mmol/L (136-145); TOTAL PROTEIN 5.6 g/dL (6.4-8.2); eGFR NON BLACK RACES > 60 (>60)
[2024-01-26 11:05] VITALS: BP 129/67; PULSE 69; O2SAT 96
--- NOTE | 2024-01-27 10:50 | W.DIS.FURT ---
Summary of Discharge Discharge Summary of Date Date of Exam: 01/26/24 Admission Date Date of Admission: 01/21/24 Admission Diagnosis Patient Problems (Updated 01/21/24 @ 11:22 by Edel Reed) Cystitis (Acute) N30.90 Acute dehydration (Acute) E86.0 Acute hypernatremia (Acute) E87.0 Acute metabolic encephalopathy (Acute) G93.41 Hospital Course: Mr Bailey is a 88y/o male with a PMH of CAD, CHF, Atrial fibrillation, CVA and HLD presented with increased weakness and confusion. states patient was confused and more weak yesterday. She also mentioned that his BP was in the low 90s. In the ER, he was noted to have elevated Na 154, K 2.6. UA was suggestive of infection. Ct-head did not show any acute changes. Patient was admitted to ICU for further care. He was started on hydration and potassium replacement. He was started on IV Rocephin. 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 Patient's labs were monitored daily and electrolytes were replaced as needed. His Urine Cx showed > 3 organisms. Patient remained afebrile with normal WBC count. He was back to his baseline mentation. Patient continued to have generalized weakness and patient's is not able to care for the patient at home. Patient and his wanted patient to be placed in a senior care facility. Patient was accepted and stable for discharge. He completed IV antibiotics for UTI while admitted. Vital Signs: Vital Signs (72 hours) 01/23/24 10:00 01/23/24 11:00 01/23/24 11:00 Temperature Pulse Rate 92 H 71 Respiratory Rate Blood Pressure 144/72 O2 Sat by Pulse Oximetry 96 97 Oxygen Delivery Method Oxygen Flow Rate FIO2% 01/23/24 12:00 01/23/24 12:01 01/23/24 12:01 Temperature 97.6 F Pulse Rate 75 75 Respiratory Rate Blood Pressure 148/83 O2 Sat by Pulse Oximetry 96 94 L Oxygen Delivery Method Oxygen Flow Rate FIO2% 01/23/24 14:00 01/23/24 14:00 01/23/24 15:01 Temperature Pulse Rate 70 Respiratory Rate Blood Pressure 134/67 145/98 O2 Sat by Pulse Oximetry 98 Oxygen Delivery Method Oxygen Flow Rate FIO2% 01/23/24 15:01 01/23/24 16:00 01/23/24 16:00 Temperature Pulse Rate 71 70 Respiratory Rate Blood Pressure 159/80 O2 Sat by Pulse Oximetry 100 99 Oxygen Delivery Method Oxygen Flow Rate FIO2% 01/23/24 19:00 01/23/24 20:14 01/23/24 20:14 Temperature 97.8 F Pulse Rate 77 Respiratory Rate Blood Pressure 146/80 O2 Sat by Pulse Oximetry 98 Oxygen Delivery Method Room Air Oxygen Flow Rate FIO2% 01/24/24 00:00 01/24/24 00:03 01/23/24 21:40 Temperature 98.3 F Pulse Rate 86 Respiratory Rate Blood Pressure 164/89 O2 Sat by Pulse Oximetry 96 Oxygen Delivery Method Room Air Oxygen Flow Rate 2 FIO2% 01/24/24 04:00 01/24/24 04:02 01/24/24 08:19 Temperature 98.1 F Pulse Rate 76 Respiratory Rate Blood Pressure 150/76 O2 Sat by Pulse Oximetry 98 Oxygen Delivery Method Room Air Oxygen Flow Rate 2 FIO2% 01/24/24 07:00 01/24/24 06:00 01/24/24 08:00 Temperature 98.0 F Pulse Rate 71 74 Respiratory Rate Blood Pressure O2 Sat by Pulse Oximetry 100 100 Oxygen Delivery Method Room Air Oxygen Flow Rate FIO2% 01/24/24 08:01 01/24/24 08:01 01/24/24 08:47 Temperature Pulse Rate 73 64 Respiratory Rate Blood Pressure 136/71 O2 Sat by Pulse Oximetry 100 77 L Oxygen Delivery Method Oxygen Flow Rate FIO2% 01/24/24 12:01 01/24/24 12:00 01/24/24 12:13 Temperature 97.6 F Pulse Rate 59 L Respiratory Rate 20 Blood Pressure 147/78 O2 Sat by Pulse Oximetry 100 100 Oxygen Delivery Method Oxygen Flow Rate FIO2% 01/24/24 14:00 01/24/24 16:00 01/24/24 16:00 Temperature 97.6 F Pulse Rate 65 65 Respiratory Rate Blood Pressure 140/73 O2 Sat by Pulse Oximetry 100 99 Oxygen Delivery Method Oxygen Flow Rate FIO2% 01/24/24 19:00 01/24/24 20:00 01/25/24 00:00 Temperature 98.2 F 98.5 F Pulse Rate 65 64 Respiratory Rate 18 18 Blood Pressure 116/58 144/72 O2 Sat by Pulse Oximetry 100 100 Oxygen Delivery Method Room Air Room Air Room Air Oxygen Flow Rate FIO2% 01/24/24 21:30 01/25/24 04:00 01/25/24 07:00 Temperature 97.7 F Pulse Rate 68 Respiratory Rate 17 Blood Pressure 138/71 O2 Sat by Pulse Oximetry 100 Oxygen Delivery Method Room Air Room Air Room Air Oxygen Flow Rate FIO2% 01/24/24 18:00 01/24/24 20:00 01/24/24 20:01 Temperature Pulse Rate 61 Respiratory Rate Blood Pressure 116/58 O2 Sat by Pulse Oximetry 94 L 100 Oxygen Delivery Method Oxygen Flow Rate FIO2% 01/24/24 20:01 01/24/24 22:00 01/25/24 00:00 Temperature Pulse Rate 65 63 63 Respiratory Rate Blood Pressure O2 Sat by Pulse Oximetry 100 100 100 Oxygen Delivery Method Oxygen Flow Rate FIO2% 01/25/24 00:00 01/25/24 02:00 01/25/24 04:00 Temperature Pulse Rate 67 58 L Respiratory Rate Blood Pressure 144/72 O2 Sat by Pulse Oximetry 100 97 Oxygen Delivery Method Oxygen Flow Rate FIO2% 01/25/24 04:00 01/25/24 06:00 01/25/24 08:00 Temperature Pulse Rate 66 Respiratory Rate Blood Pressure 138/71 137/76 O2 Sat by Pulse Oximetry 89 L Oxygen Delivery Method Oxygen Flow Rate FIO2% 01/25/24 08:00 01/25/24 08:37 01/25/24 10:00 Temperature 98.0 F Pulse Rate 68 77 Respiratory Rate Blood Pressure O2 Sat by Pulse Oximetry 99 87 L Oxygen Delivery Method Room Air Oxygen Flow Rate FIO2% 01/25/24 12:00 01/25/24 12:00 01/25/24 14:18 Temperature Pulse Rate 68 75 Respiratory Rate Blood Pressure 112/57 O2 Sat by Pulse Oximetry 100 80 L Oxygen Delivery Method Oxygen Flow Rate FIO2% 01/25/24 16:00 01/25/24 16:00 01/25/24 19:00 Temperature 97.8 F Pulse Rate 66 Respiratory Rate Blood Pressure 129/73 O2 Sat by Pulse Oximetry 97 Oxygen Delivery Method Room Air Oxygen Flow Rate FIO2% 01/25/24 20:00 01/25/24 21:00 01/26/24 00:00 Temperature 98.2 F 97.6 F Pulse Rate 73 72 Respiratory Rate 17 16 Blood Pressure 123/69 136/67 O2 Sat by Pulse Oximetry 100 97 Oxygen Delivery Method Room Air Room Air Room Air Oxygen Flow Rate FIO2% 01/26/24 04:00 01/26/24 07:00 01/25/24 18:00 Temperature 97.6 F Pulse Rate 65 73 Respiratory Rate 14 Blood Pressure 122/57 O2 Sat by Pulse Oximetry 96 98 Oxygen Delivery Method Room Air Room Air Oxygen Flow Rate FIO2% 01/25/24 20:00 01/25/24 20:00 01/25/24 22:00 Temperature Pulse Rate 71 68 Respiratory Rate Blood Pressure 123/69 O2 Sat by Pulse Oximetry 98 97 Oxygen Delivery Method Oxygen Flow Rate FIO2% 01/26/24 00:00 01/26/24 00:09 01/26/24 00:09 Temperature Pulse Rate 73 72 Respiratory Rate Blood Pressure 136/67 O2 Sat by Pulse Oximetry 97 96 Oxygen Delivery Method Oxygen Flow Rate FIO2% 01/26/24 02:00 01/26/24 04:00 01/26/24 04:00 Temperature Pulse Rate 68 66 Respiratory Rate Blood Pressure 122/57 O2 Sat by Pulse Oximetry 96 96 Oxygen Delivery Method Oxygen Flow Rate FIO2% 01/26/24 04:00 01/26/24 06:00 01/26/24 08:00 Temperature Pulse Rate 66 68 Respiratory Rate Blood Pressure 122/57 O2 Sat by Pulse Oximetry 96 95 Oxygen Delivery Method Oxygen Flow Rate FIO2% 01/26/24 08:00 01/26/24 08:00 Temperature Pulse Rate Respiratory Rate Blood Pressure 109/65 109/65 O2 Sat by Pulse Oximetry Oxygen Delivery Method Oxygen Flow Rate FIO2% Labs: Laboratory Last Values WBC 7.6 X10^3/uL (3.6-10.0) 01/26/24 04:38 RBC 4.52 X10^6/uL (4.7-6.0) L 01/26/24 04:38 Hgb 13.8 g/dL (13.5-18.0) 01/26/24 04:38 Hct 41.2 % (42.0-54.0) L 01/26/24 04:38 MCV 91.1 fL (80.0-100.0) 01/26/24 04:38 MCH 30.4 pg (27.0-34.0) 01/26/24 04:38 MCHC 33.4 g/dL (33.0-35.0) 01/26/24 04:38 RDW 20.2 % (11.6-16.5) H 01/26/24 04:38 Plt Count 168 X10^3/uL (150.0-450.0) 01/26/24 04:38 Plt Count Comment Adequate (ADEQUATE) 01/26/24 04:38 MPV 9.6 fL (7.4-11.0) 01/26/24 04:38 Neut % (Auto) 73.3 % (42.0-75.0) 01/26/24 04:38 Lymph % (Auto) 14.7 % (21.0-51.0) L 01/26/24 04:38 [place] % (Auto) 10.1 % (0.0-13.0) 01/26/24 04:38 Eos % (Auto) 1.4 % (0.9-2.9) 01/26/24 04:38 Baso % (Auto) 0.5 % (0.2-1.0) 01/26/24 04:38 Neut # (Auto) 5.6 x10^3/uL (2.2-4.8) H 01/26/24 04:38 Lymph # (Auto) 1.1 X10^3/uL (1.3-2.9) L 01/26/24 04:38 [place] # (Auto) 0.8 x10^3/uL (0.3-0.8) 01/26/24 04:38 Eos # (Auto) 0.1 x10^3/uL (0.0-0.2) 01/26/24 04:38 Baso # (Auto) 0.0 X10^3/uL (0.0-0.1) 01/26/24 04:38 Absolute Nucleated RBC 0.2 /100WBC 01/26/24 04:38 Plt Morphology Comment Normal (NORMAL) 01/26/24 04:38 RBC Morphology Abnormal (NORMAL) 01/26/24 04:38 Anisocytosis 1+ A 01/26/24 04:38 Ovalocytes Slight A 01/24/24 04:43 Keerthi Cells Present 01/22/24 04:10 Acanthocytes (Spur) Slight 01/24/24 04:43 Sodium 134 mmol/L (136-145) L 01/26/24 04:38 Corrected Sodium 135 mmol/L (136-145) L 01/26/24 04:38 Potassium 4.6 mmol/L (3.5-5.1) 01/26/24 04:38 Chloride 102 mmol/L (98-107) 01/26/24 04:38 Carbon Dioxide 27.0 mmol/L (21-32) 01/26/24 04:38 BUN 10 mg/dL (7-18) 01/26/24 04:38 Creatinine 0.85 mg/dL (0.70-1.30) 01/26/24 04:38 Est GFR (MDRD) Af Amer > 60 (>60) 01/26/24 04:38 Est GFR (MDRD) Non-Af > 60 (>60) 01/26/24 04:38 Glucose 137 mg/dL (65-99) H 01/26/24 04:38 POC Glucose (mg/dL) 125 mg/dL (65-99) H 01/22/24 11:46 Calcium 8.0 mg/dL (8.5-10.1) L 01/26/24 04:38 Corrected Calcium 9.8 mg/dL (8.5-10.1) 01/26/24 04:38 Magnesium 2.2 mg/dL (2.0-2.9) 01/21/24 04:05 Total Bilirubin 0.70 mg/dL (0.2-1.0) 01/26/24 04:38 AST 30 Units/L (15-37) 01/26/24 04:38 ALT 40 Units/L (12-78) 01/26/24 04:38 Alkaline Phosphatase 121 Units/L (46-116) H 01/26/24 04:38 Total Protein 5.6 g/dL (6.4-8.2) L 01/26/24 04:38 Albumin 1.7 g/dL (3.4-5.0) L 01/26/24 04:38 Globulin 3.9 g/dL (2.5-4.5) 01/26/24 04:38 Albumin/Globulin Ratio 0.4 Ratio (1.1-2.1) L 01/26/24 04:38 Specimen Type Clean catch urine 01/20/24 21:15 Urine Color Dark yellow (YELLOW) 01/20/24 21:15 Urine Appearance Cloudy (CLEAR) 01/20/24 21:15 Urine pH 6.0 (5.0 - 8.0) 01/20/24 21:15 Ur Specific [place] 1.015 (1.000-1.030) 01/20/24 21:15 Urine Protein 2+ (NEGATIVE) 01/20/24 21:15 Urine Glucose (UA) 4+ (NEGATIVE) 01/20/24 21:15 Urine Ketones Negative (NEGATIVE) 01/20/24 21:15 Urine Blood Negative (NEGATIVE) 01/20/24 21:15 Urine Nitrite Negative (NEGATIVE) 01/20/24 21:15 Urine Bilirubin 1+ (NEGATIVE) 01/20/24 21:15 Urine Urobilinogen 4+ (NORMAL) 01/20/24 21:15 Ur Leukocyte Esterase 1+ (NEGATIVE) 01/20/24 21:15 Urine RBC 0-2 /HPF (0-3) 01/20/24 21:15 Urine WBC 10-20 /HPF (0-5) A 01/20/24 21:15 Ur Squamous Epith Cells Few /HPF (NEGATIVE) 01/20/24 21:15 Urine Bacteria 2+ /HPF (NEGATIVE) 01/20/24 21:15 Ur Culture Indicated? Yes/culture set up 01/20/24 21:15 SARS-CoV-2 (PCR) Negative (NEGATIVE) 01/20/24 22:20 Influenza Type A (PCR) Negative (NEGATIVE) 01/20/24 22:20 Influenza Type B (PCR) Negative (NEGATIVE) 01/20/24 22:20 RSV (PCR) Negative (NEGATIVE) 01/20/24 22:20 Reason For Visit: HYPERNATERMIA, HYPOKALEMIA, DEHYDRATION, CYSTITIS Discharge Diagnosis All Active Problems (Updated 01/21/24 @ 11:22 by Edel Reed) Hypokalemia (Acute) AMS (altered mental status) (Acute) CHF (congestive heart failure) (Acute) Hyperlipidemia (Chronic) Hypertension (Chronic) Cystitis (Acute) Acute dehydration (Acute) Acute hypernatremia (Acute) Acute metabolic encephalopathy (Acute) Edema (Acute) Atrial fibrillation (Acute) CAD (coronary artery disease) (Chronic) Plan of Treatment: Continue with present treatment and follow up plan. Pt is to keep follow up appointment as instructed and take medications as ordered. Discharge Medications Discharge Medications: No Known Allergies Allergy (Verified 12/02/23 18:03) CONTINUE taking the following medications furosemide 20 mg tablet 20 mg PO QDAY 01/20/24 [History] spironolactone 50 mg tablet 25 mg PO DAILY 01/20/24 [History] amiodarone 200 mg tablet 200 mg PO DAILY 01/21/24 [History] empagliflozin 10 mg tablet (Jardiance) 10 mg PO QDAY 01/21/24 [History] Discharge Disposition Discharge Disposition: SNF Discharge Condition: Stable Discharge Plan Discharge Plan Hospital Course: Mr Bailey is a 88y/o male with a PMH of CAD, CHF, Atrial fibrillation, CVA and HLD presented with increased weakness and confusion. states patient was confused and more weak yesterday. She also mentioned that his BP was in the low 90s. In the ER, he was noted to have elevated Na 154, K 2.6. UA was suggestive of infection. Ct-head did not show any acute changes. Patient was admitted to ICU for further care. He was started on hydration and potassium replacement. He was started on IV Rocephin. 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 Patient's labs were monitored daily and electrolytes were replaced as needed. His Urine Cx showed > 3 organisms. Patient remained afebrile with normal WBC count. He was back to his baseline mentation. Patient continued to have generalized weakness and patient's is not able to care for the patient at home. Patient and his wanted patient to be placed in a senior care facility. Patient was accepted and stable for discharge. He completed IV antibiotics for UTI while admitted. Patient Disposition: SNF Condition: Stable Health Concerns: Post Hospitalization: new medications and changes needed to prevent readmission or further decline. Pt educated and given instructions on all concerns. Care Plan Goals: Problem: Fluid Volume Deficit Goal: Maintain/Improved Adequate hydration. Instructions: Follow provided instructions. Follow up with primary physician as directed. Contact primary care physician or report to the closest Emergency Room if condition worsens. Plan of Treatment: Continue with present treatment and follow up plan. Pt is to keep follow up appointment as instructed and take medications as ordered. Prescription drug monitoring program results: PDMP reviewed and no concerns identified Prescriptions: Continued furosemide 20 mg tablet 20 mg PO QDAY spironolactone 50 mg tablet 25 mg PO DAILY amiodarone 200 mg tablet 200 mg PO DAILY Jardiance 10 mg tablet 10 mg PO QDAY simvastatin 20 mg tablet 20 mg PO QPM metoprolol succinate 50 mg tablet extended release 24 hr 50 mg PO QDAY Eliquis 2.5 mg Tablet 2.5 mg PO BID Qty: 60 0RF Orders to Discharge Patient Discharge Orders: Discharge (Routine); Ordered 01/26/24 Ordered By: Edel Reed Follow ups/Referrals Follow ups/Referrals: KECIA WATERS [Primary Care Provider] - (Follow up after discharge from [facility]) Instructions Stand Alone Forms: Post Hospital Follow Up Care
== END 2024-01-26 11:55 | DRG 689 ==
LOC: ICU 20:49 → ER 20:49 → OBSVTOIN 01-21 00:18 → ICU 01-21 01:20
PROVIDERS: ADMIT Obstetrics & Gynecology Obstetrics; ATTEND Internal Medicine
DX: G93.41 Metabolic encephalopathy; B37.89 Other sites of candidiasis; N17.8 Other acute kidney failure; R47.89 Other speech disturbances; E87.0 Hyperosmolality and hypernatremia; Z20.822 Contact with and (suspected) exposure to COVID-19; E86.0 Dehydration; R26.89 Other abnormalities of gait and mobility; B95.62 Methicillin resistant Staphylococcus aureus infection as the cause of diseases classified elsewhere; Z66 Do not resuscitate; I10 Essential (primary) hypertension; E87.6 Hypokalemia; R62.7 Adult failure to thrive; I25.10 Atherosclerotic heart disease of native coronary artery without angina pectoris; Z86.73 Personal history of transient ischemic attack (TIA), and cerebral infarction without residual deficits; I48.91 Unspecified atrial fibrillation; N41.0 Acute prostatitis; R53.1 Weakness; N30.00 Acute cystitis without hematuria